=== PATIENT | male | born 1945 | race Two or more races ===

== ENCOUNTER 2018-09-12 17:40 | Inpatient (IN) | payer OTHER ==
[~2018-09-12] VITALS: Ht 170.2 cm; Wt 60.8 kg
[2018-09-12] MEDS ORDERED: BLOO-668 IN (18:25)
[2018-09-12] MEDS ORDERED: ACET650S26 GT (18:25)
[2018-09-12] MEDS ORDERED: BISA10SU8 RC (18:25)
[2018-09-12] MEDS ORDERED: DILT60TA19 GT (18:25)
[2018-09-12] MEDS ORDERED: NA P133E RC (18:25)
[2018-09-12] MEDS ORDERED: AMIN30LI2 GT (18:25)
[2018-09-12] MEDS ORDERED: DOCU50LI GT (18:25)
[2018-09-12] MEDS ORDERED: LEVE100S GT (18:25)
[2018-09-12] MEDS ORDERED: BENA20TA9 GT (18:25)
[2018-09-12] MEDS ORDERED: INSU100V11 SQ (18:25)
[2018-09-12] MEDS ORDERED: LORA10TA7 GT (18:25)
[2018-09-12] MEDS ORDERED: LORA0.5T GT (18:25)
[2018-09-12] MEDS ORDERED: NUT.237L30 GT (18:25)
[2018-09-12] MEDS ORDERED: MAGN400O6 GT (18:25)
[2018-09-12] MEDS ORDERED: CHOL100044 GT (18:25)
[2018-09-12] MEDS ORDERED: IPRA3AMP23 IH ×2 (18:25)
[2018-09-12] MEDS ORDERED: ACET-2605 GT (18:25)
[2018-09-12] MEDS ORDERED: MULT-447 GT (18:25)
[2018-09-12] MEDS ORDERED: VIT500LI GT (18:25)
[2018-09-12] MEDS ORDERED: ACETAMINOPHEN ES 500 MG TABLET GT ONE (18:30)
[2018-09-12] MEDS ORDERED: IV NS 0.9% 500 ML BAG IV ONE (18:30)
[2018-09-12] MEDS ORDERED: ACETAMINOPHEN ES 500 MG TABLET ONE (18:35)
[2018-09-12 18:56] LABS: ALANINE AMINOTRANSFERASE 72 U/L (12-78); ALBUMIN 2.3 g/dL (3.4-5.0); ALKALINE PHOSPHATASE 130 U/L (46-116); ASPARTATE AMINOTRANSFERASE 48 U/L (15-37); BASOPHILS % (AUTO) 0.3 % (0.0-2.0); BILIRUBIN,DIRECT 0.1 mg/dL (0.0-0.2); BILIRUBIN,TOTAL 0.3 mg/dL (0.2-1.0); CALCIUM, SERUM 8.9 mg/dL (8.5-10.1); CARBON DIOXIDE 30 mmol/L (21-32); CHLORIDE 104 mmol/L (98-107); CREATININE 1.1 mg/dL (0.6-1.3); EOSINOPHILS % (AUTO) 19.5 % (0.0-6.0); GLUCOSE 62 mg/dL (74-106); HEMATOCRIT 29 % (39-51); HEMOGLOBIN 9.2 g/dL (13.5-17.5); LYMPHOCYTES # (AUTO) 2.6 /CMM (0.8-4.8); LYMPHOCYTES % (AUTO) 25.3 % (20.0-44.0); MEAN CORPUSCULAR HGB CONC 32 g/dl (31.0-36.0); MEAN CORPUSCULAR VOLUME 88 fL (80-96); MONOCYTES # (AUTO) 0.7 /CMM (0.1-1.30); MONOCYTES % (AUTO) 6.6 % (2.0-12.0); NEUTROPHILS # (AUTO) 4.9 /CMM (1.8-8.9); NEUTROPHILS % (AUTO) 48.3 % (43.0-81.0); PLATELET COUNT (AUTO) 364 /CMM (150-450); POTASSIUM 4.6 mmol/L (3.5-5.1); RED BLOOD CELL COUNT(AUTO) 3.29 MIL/uL (4.5-6.0); SODIUM SERUM 138 mmol/L (136-145); TOTAL PROTEIN, SERUM 8.6 g/dL (6.4-8.2); UREA NITROGEN, BLOOD 26 mg/dL (7-18); WHITE BLOOD COUNT (AUTO) 10.1 K/uL (4.3-11.0)
[2018-09-12] MEDS ORDERED: Z GUARD REMEDY 2 OZ OINT TP PRN (22:00)
[2018-09-12] MEDS ORDERED: GLUCERNA 1.2 1,000 ML BOTTLE GT SCH (22:00)
[2018-09-12] MEDS ORDERED: MAGNESIUM HYDROXIDE 30 ML UDC PO PRN (22:00)
[2018-09-12] MEDS ORDERED: MAG HYDROX/AL HYDROX/SIMETH 30 ML UDC PO PRN (22:00)
[2018-09-12] MEDS ORDERED: ONDANSETRON HCL/PF 4 MG/2 ML VIAL IVP PRN (22:00)
[2018-09-12] MEDS ORDERED: NA PHOS,M-B/NA PHOS,DI-BA 1 EA ENEMA RC PRN (22:00)
[2018-09-12] MEDS ORDERED: BISACODYL SUPP (10 MG) 10 MG/SUPP.RECT SUPP.RECT RC PRN (22:00)
[2018-09-12] MEDS ORDERED: DEXTROSE 50%-WATER 50 ML DISP.SYRIN IV PRN (22:30)
[2018-09-12 22:47] VITALS: BP 154/100
[2018-09-12 22:50] VITALS: BP 154/100
[2018-09-12] MEDS ORDERED: ASPIRIN 300 MG/SUPP.RECT RC ONE (23:00)
[2018-09-12] MEDS ORDERED: VANCOMYCIN 1.5 GM in IV D5W 500ml IV ONE (23:00)
[2018-09-13] VITALS: BP_SYST 139; BP_SYST 142; BP_DIAS 72; BP_DIAS 75
[2018-09-13] MEDS ORDERED: CEFEPIME 2 GM in IV D5W 100 ML IV ONE ×2
[2018-09-13] MEDS: BLOOD SUGAR DIAGNOSTIC 1 EACH STRIP IN SCH ×4 (00:47→23:52)
[2018-09-13] MEDS ORDERED: VANCOMYCIN 1 GM VIAL ONE (00:50)
[2018-09-13] MEDS ORDERED: VANCOMYCIN 500 MG VIAL ONE (00:53)
[2018-09-13] MEDS ORDERED: ACETAMINOPHEN 650 MG/SUPP.RECT RC ONE (01:09)
[2018-09-13] MEDS ORDERED: CEFEPIME 1 GM VIAL ONE (01:13)
[2018-09-13 04:00] VITALS: BP 139/75
[2018-09-13 08:00] VITALS: BP 142/77
[2018-09-13 08:20] LABS: EOSINOPHILS % (AUTO) 16.2 % (0.0-6.0); HEMATOCRIT 27 % (39-51); HEMOGLOBIN 8.7 g/dL (13.5-17.5); LYMPHOCYTES % (AUTO) 12.5 % (20.0-44.0); MEAN CORPUSCULAR HGB CONC 32 g/dl (31.0-36.0); MEAN CORPUSCULAR VOLUME 87 fL (80-96); MONOCYTES # (AUTO) 0.4 /CMM (0.1-1.30); MONOCYTES % (AUTO) 5.3 % (2.0-12.0); NEUTROPHILS # (AUTO) 5.5 /CMM (1.8-8.9); PLATELET COUNT (AUTO) 356 /CMM (150-450); RED BLOOD CELL COUNT(AUTO) 3.09 MIL/uL (4.5-6.0); WHITE BLOOD COUNT (AUTO) 8.3 K/uL (4.3-11.0)
[2018-09-13 08:22] LABS: CALCIUM, SERUM 8.5 mg/dL (8.5-10.1); CARBON DIOXIDE 26 mmol/L (21-32); CHLORIDE 106 mmol/L (98-107); CREATININE 0.8 mg/dL (0.6-1.3); GLUCOSE 128 mg/dL (74-106); PHOSPHORUS 3.6 mg/dL (2.5-4.9); POTASSIUM 4.1 mmol/L (3.5-5.1); SODIUM SERUM 140 mmol/L (136-145); UREA NITROGEN, BLOOD 22 mg/dL (7-18)
[2018-09-13 08:29] LABS: CHOLESTEROL 97 mg/dL (<200); HDL CHOLESTEROL 34 mg/dL (40-60); LDL 68 mg/dL (0-99); THYROID STIMULATING HORMONE 1.802 uIU/mL (0.358-3.74); TRIGLYCERIDES 80 mg/dL (30-150)
[2018-09-13] MEDS ORDERED: FEE PK DOSING 1 MIN EA MC ONE (08:29)
[2018-09-13] MEDS: LEVETIRACETAM SOL (5 ML) 100 MG/ML UDC GT SCH ×2 (08:51→16:26)
[2018-09-13] MEDS: CHOLECALCIFEROL 1,000 UNIT TABLET (VIT D3) GT SCH (08:51)
[2018-09-13] MEDS: BENAZEPRIL HCL 10 MG TABLET GT SCH (08:51)
[2018-09-13] MEDS: PROSOURCE / PROSTAT (PYXIS) 30 ML UDC GT SCH (08:51)
[2018-09-13] MEDS: DILTIAZEM HCL 30 MG TABLET GT SCH ×2 (08:52→16:26)
[2018-09-13] MEDS: LORATADINE 10 MG TABLET GT SCH (08:52)
[2018-09-13] MEDS: ASCORBIC ACID 500 MG TABLET GT SCH (08:52)
[2018-09-13] MEDS: DOCUSATE SODIUM LIQ 100 MG/10 ML UDC GT SCH ×2 (08:52→16:26)
[2018-09-13] MEDS: MULTIVIT W/MINERALS 1 TAB TABLET GT SCH (08:52)
[2018-09-13] MEDS ORDERED: ASCORBIC ACID SYRUP 500 MG/5 ML UDC GT SCH (09:00)
[2018-09-13] MEDS ORDERED: IPRATROPIUM NEB FS 0.5 MG/2.5 ML AMPUL.NEB NEB PRN (09:00)
[2018-09-13] MEDS: INSULIN REGULAR, HUMAN 100 UNIT/ML 3 ML VIAL SQ PRN ×3 (12:23→23:58)
[2018-09-13] MEDS: VANCOMYCIN 0.75 GM in IV D5W 250 ML IV SCH ×2 (12:35→22:33)
[2018-09-13] MEDS ORDERED: ALBUTEROL FS 2.5 MG/3 ML VIAL.NEB NEB PRN (13:30)
[2018-09-13] MEDS: IPRATROPIUM NEB FS 0.5 MG/2.5 ML AMPUL.NEB NEB SCH ×2 (13:42→19:41)
[2018-09-13] MEDS: ALBUTEROL FS 2.5 MG/3 ML VIAL.NEB NEB SCH ×2 (13:42→19:41)
[2018-09-13] MEDS: CEFEPIME 2 GM in IV D5W 100 ML IV SCH (14:09)
[2018-09-13 16:00] VITALS: BP 135/62
[2018-09-13] MEDS: IV NS 0.9% 1,000 ML IV PRN (16:45)
[2018-09-13] MEDS: GLUCERNA 1.2 1,000 ML BOTTLE GT SCH (16:46)
[2018-09-13 20:00] VITALS: BP 136/84
[2018-09-13 21:28] VITALS: BP 136/84
[2018-09-14] VITALS: BP 148/96
[2018-09-14] MEDS: ALBUTEROL FS 2.5 MG/3 ML VIAL.NEB NEB SCH ×4 (01:07→19:05)
[2018-09-14] MEDS: IPRATROPIUM NEB FS 0.5 MG/2.5 ML AMPUL.NEB NEB SCH ×4 (01:07→19:05)
[2018-09-14] MEDS: CEFEPIME 2 GM in IV D5W 100 ML IV SCH ×2 (02:36→15:46)
[2018-09-14 04:00] VITALS: BP 138/79
[2018-09-14] MEDS: GLUCERNA 1.2 1,000 ML BOTTLE GT SCH (05:40)
[2018-09-14] MEDS: BLOOD SUGAR DIAGNOSTIC 1 EACH STRIP IN SCH ×3 (05:53→17:35)
[2018-09-14] MEDS: IV NS 0.9% 1,000 ML IV PRN ×2 (06:00→22:23)
[2018-09-14] MEDS: INSULIN REGULAR, HUMAN 100 UNIT/ML 3 ML VIAL SQ PRN ×3 (06:03→17:37)
[2018-09-14 07:13] LABS: BASOPHILS % (AUTO) 0.3 % (0.0-2.0); HEMATOCRIT 26 % (39-51); HEMOGLOBIN 8.6 g/dL (13.5-17.5); LYMPHOCYTES # (AUTO) 1.2 /CMM (0.8-4.8); LYMPHOCYTES % (AUTO) 15.6 % (20.0-44.0); MEAN CORPUSCULAR HGB CONC 33 g/dl (31.0-36.0); MEAN CORPUSCULAR VOLUME 87 fL (80-96); MONOCYTES # (AUTO) 0.5 /CMM (0.1-1.30); MONOCYTES % (AUTO) 5.9 % (2.0-12.0); NEUTROPHILS # (AUTO) 4.7 /CMM (1.8-8.9); NEUTROPHILS % (AUTO) 60.2 % (43.0-81.0); PLATELET COUNT (AUTO) 351 /CMM (150-450); WHITE BLOOD COUNT (AUTO) 7.8 K/uL (4.3-11.0)
[2018-09-14 07:43] LABS: CALCIUM, SERUM 8.6 mg/dL (8.5-10.1); CARBON DIOXIDE 24 mmol/L (21-32); CHLORIDE 105 mmol/L (98-107); GLUCOSE 191 mg/dL (74-106); PHOSPHORUS 3.6 mg/dL (2.5-4.9); POTASSIUM 4.3 mmol/L (3.5-5.1); SODIUM SERUM 138 mmol/L (136-145); UREA NITROGEN, BLOOD 24 mg/dL (7-18)
[2018-09-14 07:48] LABS: IRON, SERUM 29 ug/dl (50-175); TOTAL IRON BINDING CAPACITY 156 ug/dl (250-450)
[2018-09-14 08:00] VITALS: BP 135/70
[2018-09-14 08:35] LABS: FERRITIN 303 ng/mL (8-388)
[2018-09-14] MEDS: LEVETIRACETAM SOL (5 ML) 100 MG/ML UDC GT SCH ×2 (09:08→16:45)
[2018-09-14] MEDS: DOCUSATE SODIUM LIQ 100 MG/10 ML UDC GT SCH ×2 (09:08→16:45)
[2018-09-14] MEDS: DILTIAZEM HCL 30 MG TABLET GT SCH ×2 (09:09→16:44)
[2018-09-14] MEDS: LORATADINE 10 MG TABLET GT SCH (09:09)
[2018-09-14] MEDS: ASCORBIC ACID 500 MG TABLET GT SCH (09:09)
[2018-09-14] MEDS: CHOLECALCIFEROL 1,000 UNIT TABLET (VIT D3) GT SCH (09:09)
[2018-09-14] MEDS: MULTIVIT W/MINERALS 1 TAB TABLET GT SCH (09:09)
[2018-09-14] MEDS: BENAZEPRIL HCL 10 MG TABLET GT SCH (09:09)
[2018-09-14] MEDS: PROSOURCE / PROSTAT (PYXIS) 30 ML UDC GT SCH (09:10)
[2018-09-14] MEDS: VANCOMYCIN 0.75 GM in IV D5W 250 ML IV SCH ×2 (11:00→11:24)
[2018-09-14 16:00] VITALS: BP 140/70
[2018-09-14] MEDS: LACTOBACILLUS RHAMNOSUS GG 1 EACH CAP.SPRINK GT SCH (16:44)
[2018-09-14 20:13] VITALS: BP 133/68
[2018-09-15 00:17] VITALS: BP 144/74
[2018-09-15] MEDS: BLOOD SUGAR DIAGNOSTIC 1 EACH STRIP IN SCH ×5 (00:29→23:36)
[2018-09-15] MEDS: INSULIN REGULAR, HUMAN 100 UNIT/ML 3 ML VIAL SQ PRN ×5 (00:31→23:40)
[2018-09-15] MEDS: ALBUTEROL FS 2.5 MG/3 ML VIAL.NEB NEB SCH ×2 (00:49→07:44)
[2018-09-15] MEDS: IPRATROPIUM NEB FS 0.5 MG/2.5 ML AMPUL.NEB NEB SCH ×4 (00:49→20:29)
[2018-09-15] MEDS: CEFEPIME 2 GM in IV D5W 100 ML IV SCH ×2 (03:16→15:06)
[2018-09-15] MEDS: GLUCERNA 1.2 1,000 ML BOTTLE GT SCH ×2 (03:16→18:03)
[2018-09-15 04:50] VITALS: BP 133/81
[2018-09-15 07:43] LABS: BASOPHILS % (AUTO) 0.1 % (0.0-2.0); EOSINOPHILS % (AUTO) 16.6 % (0.0-6.0); HEMATOCRIT 26 % (39-51); HEMOGLOBIN 8.3 g/dL (13.5-17.5); LYMPHOCYTES # (AUTO) 1.8 /CMM (0.8-4.8); LYMPHOCYTES % (AUTO) 23.1 % (20.0-44.0); MEAN CORPUSCULAR HGB CONC 32 g/dl (31.0-36.0); MEAN CORPUSCULAR VOLUME 88 fL (80-96); MONOCYTES # (AUTO) 0.5 /CMM (0.1-1.30); MONOCYTES % (AUTO) 6.6 % (2.0-12.0); NEUTROPHILS # (AUTO) 4.1 /CMM (1.8-8.9); NEUTROPHILS % (AUTO) 53.6 % (43.0-81.0); PLATELET COUNT (AUTO) 327 /CMM (150-450); RED BLOOD CELL COUNT(AUTO) 2.95 MIL/uL (4.5-6.0); WHITE BLOOD COUNT (AUTO) 7.6 K/uL (4.3-11.0)
[2018-09-15 07:51] LABS: CALCIUM, SERUM 8.6 mg/dL (8.5-10.1); CARBON DIOXIDE 25 mmol/L (21-32); CHLORIDE 106 mmol/L (98-107); GLUCOSE 181 mg/dL (74-106); MAGNESIUM 1.8 mg/dL (1.8-2.4); PHOSPHORUS 3.8 mg/dL (2.5-4.9); POTASSIUM 4.6 mmol/L (3.5-5.1); SODIUM SERUM 139 mmol/L (136-145); UREA NITROGEN, BLOOD 22 mg/dL (7-18)
[2018-09-15] MEDS: LEVETIRACETAM SOL (5 ML) 100 MG/ML UDC GT SCH ×2 (09:34→16:40)
[2018-09-15] MEDS: DOCUSATE SODIUM LIQ 100 MG/10 ML UDC GT SCH ×2 (09:34→16:40)
[2018-09-15] MEDS: LACTOBACILLUS RHAMNOSUS GG 1 EACH CAP.SPRINK GT SCH ×2 (09:34→16:40)
[2018-09-15] MEDS: CHOLECALCIFEROL 1,000 UNIT TABLET (VIT D3) GT SCH (09:34)
[2018-09-15] MEDS: DILTIAZEM HCL 30 MG TABLET GT SCH ×2 (09:35→16:40)
[2018-09-15] MEDS: MULTIVIT W/MINERALS 1 TAB TABLET GT SCH (09:35)
[2018-09-15] MEDS: BENAZEPRIL HCL 10 MG TABLET GT SCH (09:35)
[2018-09-15] MEDS: ASCORBIC ACID 500 MG TABLET GT SCH (09:35)
[2018-09-15] MEDS: LORATADINE 10 MG TABLET GT SCH (10:16)
[2018-09-15] MEDS: PROSOURCE / PROSTAT (PYXIS) 30 ML UDC GT SCH (10:17)
[2018-09-15] MEDS ORDERED: VANCOMYCIN 1 GM in IV D5W 250 ML IV SCH (11:00)
[2018-09-15] MEDS: VANCOMYCIN 0.75 GM in IV D5W 250 ML IV SCH (11:31)
[2018-09-15] MEDS: ALBUTEROL HALF STRENGTH 1.25 MG/3 ML VIAL.NEB NEB SCH ×2 (13:21→20:29)
[2018-09-15 15:44] VITALS: BP 137/77
[2018-09-15 16:00] VITALS: BP 152/99
[2018-09-15 20:00] VITALS: BP 144/69
[2018-09-15] MEDS: IV NS 0.9% 1,000 ML IV PRN (20:03)
[2018-09-16] VITALS: BP 144/94
[2018-09-16] MEDS: IPRATROPIUM NEB FS 0.5 MG/2.5 ML AMPUL.NEB NEB SCH ×4 (02:12→20:15)
[2018-09-16] MEDS: ALBUTEROL HALF STRENGTH 1.25 MG/3 ML VIAL.NEB NEB SCH ×4 (02:12→20:14)
[2018-09-16] MEDS: CEFEPIME 2 GM in IV D5W 100 ML IV SCH ×2 (03:01→14:45)
[2018-09-16 04:00] VITALS: BP 137/84
[2018-09-16] MEDS: BLOOD SUGAR DIAGNOSTIC 1 EACH STRIP IN SCH ×4 (05:48→23:23)
[2018-09-16] MEDS: INSULIN REGULAR, HUMAN 100 UNIT/ML 3 ML VIAL SQ PRN ×3 (05:52→23:23)
[2018-09-16 07:36] LABS: BASOPHILS % (AUTO) 0.1 % (0.0-2.0); EOSINOPHILS % (AUTO) 17.7 % (0.0-6.0); HEMATOCRIT 26 % (39-51); HEMOGLOBIN 8.3 g/dL (13.5-17.5); LYMPHOCYTES # (AUTO) 1.5 /CMM (0.8-4.8); LYMPHOCYTES % (AUTO) 19.3 % (20.0-44.0); MEAN CORPUSCULAR HGB CONC 32 g/dl (31.0-36.0); MEAN CORPUSCULAR VOLUME 87 fL (80-96); MONOCYTES # (AUTO) 0.5 /CMM (0.1-1.30); MONOCYTES % (AUTO) 6.7 % (2.0-12.0); NEUTROPHILS # (AUTO) 4.3 /CMM (1.8-8.9); NEUTROPHILS % (AUTO) 56.2 % (43.0-81.0); PLATELET COUNT (AUTO) 328 /CMM (150-450); RED BLOOD CELL COUNT(AUTO) 2.96 MIL/uL (4.5-6.0); WHITE BLOOD COUNT (AUTO) 7.6 K/uL (4.3-11.0)
[2018-09-16 07:57] LABS: CALCIUM, SERUM 8.6 mg/dL (8.5-10.1); CARBON DIOXIDE 25 mmol/L (21-32); CHLORIDE 103 mmol/L (98-107); CREATININE 0.9 mg/dL (0.6-1.3); GLUCOSE 147 mg/dL (74-106); MAGNESIUM 1.9 mg/dL (1.8-2.4); PHOSPHORUS 3.3 mg/dL (2.5-4.9); POTASSIUM 4.1 mmol/L (3.5-5.1); SODIUM SERUM 136 mmol/L (136-145); UREA NITROGEN, BLOOD 17 mg/dL (7-18)
[2018-09-16 08:00] VITALS: BP 139/95
[2018-09-16] MEDS: LEVETIRACETAM SOL (5 ML) 100 MG/ML UDC GT SCH ×2 (08:20→16:37)
[2018-09-16] MEDS: CHOLECALCIFEROL 1,000 UNIT TABLET (VIT D3) GT SCH (08:20)
[2018-09-16] MEDS: LORATADINE 10 MG TABLET GT SCH (08:20)
[2018-09-16] MEDS: LACTOBACILLUS RHAMNOSUS GG 1 EACH CAP.SPRINK GT SCH ×2 (08:20→16:37)
[2018-09-16] MEDS: DOCUSATE SODIUM LIQ 100 MG/10 ML UDC GT SCH ×2 (08:20→16:37)
[2018-09-16] MEDS: ASCORBIC ACID 500 MG TABLET GT SCH (08:20)
[2018-09-16] MEDS: MULTIVIT W/MINERALS 1 TAB TABLET GT SCH (08:20)
[2018-09-16] MEDS: BENAZEPRIL HCL 10 MG TABLET GT SCH (08:20)
[2018-09-16] MEDS: DILTIAZEM HCL 30 MG TABLET GT SCH ×2 (08:21→16:38)
[2018-09-16] MEDS: PROSOURCE / PROSTAT (PYXIS) 30 ML UDC GT SCH (08:26)
[2018-09-16] MEDS: VANCOMYCIN 0.75 GM in IV D5W 250 ML IV SCH (10:23)
[2018-09-16] MEDS: IV NS 0.9% 1,000 ML IV PRN (11:30)
[2018-09-16 12:00] VITALS: BP 142/95
[2018-09-16] MEDS: CADEXOMER IODINE 40 GM TUBE TP SCH (14:00)
[2018-09-16 16:00] VITALS: BP 156/108
[2018-09-16] MEDS: GLUCERNA 1.2 1,000 ML BOTTLE GT SCH (17:40)
[2018-09-16 20:00] VITALS: BP 148/65
[2018-09-17] VITALS: BP 152/61
[2018-09-17] MEDS: IPRATROPIUM NEB FS 0.5 MG/2.5 ML AMPUL.NEB NEB SCH ×4 (02:07→20:12)
[2018-09-17] MEDS: ALBUTEROL HALF STRENGTH 1.25 MG/3 ML VIAL.NEB NEB SCH ×4 (02:07→20:12)
[2018-09-17] MEDS: CEFEPIME 2 GM in IV D5W 100 ML IV SCH ×2 (02:24→15:11)
[2018-09-17] MEDS: IV NS 0.9% 1,000 ML IV PRN ×2 (03:01→23:32)
[2018-09-17 04:00] VITALS: BP_SYST 133; BP_SYST 148; BP_DIAS 65; BP_DIAS 83
[2018-09-17] MEDS: BLOOD SUGAR DIAGNOSTIC 1 EACH STRIP IN SCH ×4 (05:29→23:55)
[2018-09-17] MEDS: INSULIN REGULAR, HUMAN 100 UNIT/ML 3 ML VIAL SQ PRN ×3 (05:33→18:21)
[2018-09-17 07:13] LABS: BASOPHILS % (AUTO) 0.1 % (0.0-2.0); HEMATOCRIT 26 % (39-51); HEMOGLOBIN 8.5 g/dL (13.5-17.5); LYMPHOCYTES # (AUTO) 1.4 /CMM (0.8-4.8); LYMPHOCYTES % (AUTO) 16.8 % (20.0-44.0); MEAN CORPUSCULAR HGB CONC 33 g/dl (31.0-36.0); MEAN CORPUSCULAR VOLUME 88 fL (80-96); MONOCYTES # (AUTO) 0.6 /CMM (0.1-1.30); MONOCYTES % (AUTO) 7.5 % (2.0-12.0); NEUTROPHILS # (AUTO) 4.7 /CMM (1.8-8.9); NEUTROPHILS % (AUTO) 57.6 % (43.0-81.0); PLATELET COUNT (AUTO) 327 /CMM (150-450); RED BLOOD CELL COUNT(AUTO) 2.97 MIL/uL (4.5-6.0); WHITE BLOOD COUNT (AUTO) 8.2 K/uL (4.3-11.0)
[2018-09-17 07:34] LABS: CALCIUM, SERUM 8.6 mg/dL (8.5-10.1); CARBON DIOXIDE 26 mmol/L (21-32); CHLORIDE 104 mmol/L (98-107); GLUCOSE 156 mg/dL (74-106); PHOSPHORUS 3.4 mg/dL (2.5-4.9); SODIUM SERUM 137 mmol/L (136-145); UREA NITROGEN, BLOOD 18 mg/dL (7-18)
[2018-09-17 08:00] VITALS: BP_SYST 170; BP_SYST 171; BP_DIAS 82; BP_DIAS 92
[2018-09-17] MEDS: BENAZEPRIL HCL 10 MG TABLET GT SCH (10:03)
[2018-09-17] MEDS: DOCUSATE SODIUM LIQ 100 MG/10 ML UDC GT SCH ×2 (10:03→17:22)
[2018-09-17] MEDS: ASCORBIC ACID 500 MG TABLET GT SCH (10:03)
[2018-09-17] MEDS: CHOLECALCIFEROL 1,000 UNIT TABLET (VIT D3) GT SCH (10:03)
[2018-09-17] MEDS: LEVETIRACETAM SOL (5 ML) 100 MG/ML UDC GT SCH ×2 (10:03→17:23)
[2018-09-17] MEDS: LACTOBACILLUS RHAMNOSUS GG 1 EACH CAP.SPRINK GT SCH ×2 (10:04→17:23)
[2018-09-17] MEDS: DILTIAZEM HCL 30 MG TABLET GT SCH ×2 (10:04→17:23)
[2018-09-17] MEDS: LORATADINE 10 MG TABLET GT SCH (10:04)
[2018-09-17] MEDS: PROSOURCE / PROSTAT (PYXIS) 30 ML UDC GT SCH (10:04)
[2018-09-17] MEDS: MULTIVIT W/MINERALS 1 TAB TABLET GT SCH (10:05)
[2018-09-17] MEDS: CADEXOMER IODINE 40 GM TUBE TP SCH (10:06)
[2018-09-17] MEDS: VANCOMYCIN 0.75 GM in IV D5W 250 ML IV SCH (10:17)
[2018-09-17 12:00] VITALS: BP 170/92
[2018-09-17] MEDS: GLUCERNA 1.2 1,000 ML BOTTLE GT SCH (15:11)
[2018-09-17 16:00] VITALS: BP 155/71
[2018-09-17 20:00] VITALS: BP 142/94
[2018-09-18] VITALS: BP 139/67
[2018-09-18] MEDS: IPRATROPIUM NEB FS 0.5 MG/2.5 ML AMPUL.NEB NEB SCH ×4 (01:05→20:08)
[2018-09-18] MEDS: ALBUTEROL HALF STRENGTH 1.25 MG/3 ML VIAL.NEB NEB SCH ×4 (01:05→20:08)
[2018-09-18] MEDS: CEFEPIME 2 GM in IV D5W 100 ML IV SCH ×2 (03:20→15:21)
[2018-09-18 04:00] VITALS: BP 136/66
[2018-09-18] MEDS: BLOOD SUGAR DIAGNOSTIC 1 EACH STRIP IN SCH ×3 (05:51→19:20)
[2018-09-18] MEDS: GLUCERNA 1.2 1,000 ML BOTTLE GT SCH ×2 (05:58→22:17)
[2018-09-18] MEDS: INSULIN REGULAR, HUMAN 100 UNIT/ML 3 ML VIAL SQ PRN ×3 (06:05→19:14)
[2018-09-18 08:00] VITALS: BP_SYST 144; BP_SYST 154; BP_DIAS 73; BP_DIAS 82
[2018-09-18 08:18] LABS: EOSINOPHILS % (AUTO) 15.2 % (0.0-6.0); HEMATOCRIT 25 % (39-51); HEMOGLOBIN 8.3 g/dL (13.5-17.5); LYMPHOCYTES # (AUTO) 1.3 /CMM (0.8-4.8); LYMPHOCYTES % (AUTO) 14.4 % (20.0-44.0); MEAN CORPUSCULAR HGB CONC 33 g/dl (31.0-36.0); MEAN CORPUSCULAR VOLUME 88 fL (80-96); MONOCYTES # (AUTO) 0.8 /CMM (0.1-1.30); MONOCYTES % (AUTO) 8.6 % (2.0-12.0); NEUTROPHILS # (AUTO) 5.7 /CMM (1.8-8.9); NEUTROPHILS % (AUTO) 61.8 % (43.0-81.0); PLATELET COUNT (AUTO) 296 /CMM (150-450); WHITE BLOOD COUNT (AUTO) 9.2 K/uL (4.3-11.0)
[2018-09-18 08:27] LABS: CALCIUM, SERUM 8.3 mg/dL (8.5-10.1); CARBON DIOXIDE 27 mmol/L (21-32); CHLORIDE 102 mmol/L (98-107); GLUCOSE 156 mg/dL (74-106); MAGNESIUM 1.9 mg/dL (1.8-2.4); PHOSPHORUS 3.2 mg/dL (2.5-4.9); SODIUM SERUM 134 mmol/L (136-145); UREA NITROGEN, BLOOD 17 mg/dL (7-18)
[2018-09-18] MEDS: LEVETIRACETAM SOL (5 ML) 100 MG/ML UDC GT SCH ×2 (09:59→16:47)
[2018-09-18] MEDS: CHOLECALCIFEROL 1,000 UNIT TABLET (VIT D3) GT SCH (09:59)
[2018-09-18] MEDS: MULTIVIT W/MINERALS 1 TAB TABLET GT SCH (10:00)
[2018-09-18] MEDS: ASCORBIC ACID 500 MG TABLET GT SCH (10:00)
[2018-09-18] MEDS: BENAZEPRIL HCL 10 MG TABLET GT SCH (10:01)
[2018-09-18] MEDS: DOCUSATE SODIUM LIQ 100 MG/10 ML UDC GT SCH ×2 (10:02→16:47)
[2018-09-18] MEDS: LORATADINE 10 MG TABLET GT SCH (10:02)
[2018-09-18] MEDS: DILTIAZEM HCL 30 MG TABLET GT SCH ×2 (10:05→16:47)
[2018-09-18] MEDS: LACTOBACILLUS RHAMNOSUS GG 1 EACH CAP.SPRINK GT SCH ×2 (10:05→16:48)
[2018-09-18] MEDS: PROSOURCE / PROSTAT (PYXIS) 30 ML UDC GT SCH (10:07)
[2018-09-18] MEDS: CADEXOMER IODINE 40 GM TUBE TP SCH (11:18)
[2018-09-18] MEDS: VANCOMYCIN 0.75 GM in IV D5W 250 ML IV SCH (11:25)
[2018-09-18 12:00] VITALS: BP 144/82
[2018-09-18] MEDS: IV NS 0.9% 1,000 ML IV PRN (15:21)
[2018-09-18 16:00] VITALS: BP 139/87
[2018-09-18 20:00] VITALS: BP 147/68
[2018-09-19] VITALS: BP_SYST 138; BP_SYST 172; BP_DIAS 73; BP_DIAS 84
[2018-09-19] MEDS: BLOOD SUGAR DIAGNOSTIC 1 EACH STRIP IN SCH ×5 (00:19→23:03)
[2018-09-19 00:24] VITALS: BP 161/80
[2018-09-19] MEDS: LORAZEPAM 0.5 MG TABLET GT PRN (00:28)
[2018-09-19] MEDS: IPRATROPIUM NEB FS 0.5 MG/2.5 ML AMPUL.NEB NEB SCH ×4 (01:19→19:28)
[2018-09-19] MEDS: ALBUTEROL HALF STRENGTH 1.25 MG/3 ML VIAL.NEB NEB SCH ×4 (01:19→19:28)
[2018-09-19] MEDS: CEFEPIME 2 GM in IV D5W 100 ML IV SCH ×2 (02:06→15:57)
[2018-09-19 04:00] VITALS: BP_SYST 145; BP_SYST 154; BP_DIAS 78; BP_DIAS 89
[2018-09-19] MEDS: INSULIN REGULAR, HUMAN 100 UNIT/ML 3 ML VIAL SQ PRN ×4 (06:03→23:13)
[2018-09-19] MEDS: IV NS 0.9% 1,000 ML IV PRN ×2 (06:04→21:01)
[2018-09-19 08:00] VITALS: BP 127/69
[2018-09-19 08:14] LABS: HEMATOCRIT 26 % (39-51); HEMOGLOBIN 8.4 g/dL (13.5-17.5); LYMPHOCYTES # (AUTO) 1.4 /CMM (0.8-4.8); LYMPHOCYTES % (AUTO) 13.2 % (20.0-44.0); MEAN CORPUSCULAR HGB CONC 32 g/dl (31.0-36.0); MEAN CORPUSCULAR VOLUME 90 fL (80-96); MONOCYTES % (AUTO) 9.9 % (2.0-12.0); NEUTROPHILS # (AUTO) 6.4 /CMM (1.8-8.9); NEUTROPHILS % (AUTO) 61.9 % (43.0-81.0); PLATELET COUNT (AUTO) 300 /CMM (150-450); RED BLOOD CELL COUNT(AUTO) 2.93 MIL/uL (4.5-6.0); WHITE BLOOD COUNT (AUTO) 10.4 K/uL (4.3-11.0)
[2018-09-19] MEDS: CHOLECALCIFEROL 1,000 UNIT TABLET (VIT D3) GT SCH (09:11)
[2018-09-19] MEDS: LEVETIRACETAM SOL (5 ML) 100 MG/ML UDC GT SCH ×2 (09:11→18:22)
[2018-09-19] MEDS: DOCUSATE SODIUM LIQ 100 MG/10 ML UDC GT SCH ×2 (09:11→18:23)
[2018-09-19] MEDS: ASCORBIC ACID 500 MG TABLET GT SCH (09:12)
[2018-09-19] MEDS: DILTIAZEM HCL 30 MG TABLET GT SCH ×2 (09:12→18:22)
[2018-09-19] MEDS: BENAZEPRIL HCL 10 MG TABLET GT SCH (09:12)
[2018-09-19] MEDS: MULTIVIT W/MINERALS 1 TAB TABLET GT SCH (09:12)
[2018-09-19] MEDS: LACTOBACILLUS RHAMNOSUS GG 1 EACH CAP.SPRINK GT SCH ×2 (09:12→18:22)
[2018-09-19] MEDS: LORATADINE 10 MG TABLET GT SCH (09:12)
[2018-09-19] MEDS: PROSOURCE / PROSTAT (PYXIS) 30 ML UDC GT SCH (09:32)
[2018-09-19] MEDS: CADEXOMER IODINE 40 GM TUBE TP SCH (09:59)
[2018-09-19 10:30] LABS: CARBON DIOXIDE 23 mmol/L (21-32); CHLORIDE 102 mmol/L (98-107); GLUCOSE 145 mg/dL (74-106); MAGNESIUM 1.9 mg/dL (1.8-2.4); PHOSPHORUS 3.4 mg/dL (2.5-4.9); POTASSIUM 4.4 mmol/L (3.5-5.1); SODIUM SERUM 134 mmol/L (136-145); UREA NITROGEN, BLOOD 19 mg/dL (7-18)
[2018-09-19 10:55] LABS: CALCIUM, SERUM 8.9 mg/dL (8.5-10.1)
[2018-09-19] MEDS: VANCOMYCIN 0.75 GM in IV D5W 250 ML IV SCH (11:06)
[2018-09-19 16:00] VITALS: BP 156/75
[2018-09-19] MEDS: GLUCERNA 1.2 1,000 ML BOTTLE GT SCH (16:02)
[2018-09-19 20:00] VITALS: BP 148/75
[2018-09-19] MEDS: ACETAMINOPHEN 325 MG TABLET PO PRN (20:02)
[2018-09-20] VITALS: BP 138/89
[2018-09-20] MEDS: ALBUTEROL HALF STRENGTH 1.25 MG/3 ML VIAL.NEB NEB SCH ×4 (00:49→19:46)
[2018-09-20] MEDS: IPRATROPIUM NEB FS 0.5 MG/2.5 ML AMPUL.NEB NEB SCH ×4 (00:49→19:46)
[2018-09-20] MEDS: CEFEPIME 2 GM in IV D5W 100 ML IV SCH ×2 (02:00→15:54)
[2018-09-20 04:00] VITALS: BP 152/78
[2018-09-20] MEDS: GLUCERNA 1.2 1,000 ML BOTTLE GT SCH (04:55)
[2018-09-20] MEDS: BLOOD SUGAR DIAGNOSTIC 1 EACH STRIP IN SCH ×3 (05:04→18:13)
[2018-09-20] MEDS: INSULIN REGULAR, HUMAN 100 UNIT/ML 3 ML VIAL SQ PRN ×2 (05:16→11:58)
[2018-09-20 08:00] VITALS: BP 119/77
[2018-09-20 08:00] LABS: BASOPHILS % (AUTO) 0.1 % (0.0-2.0); EOSINOPHILS % (AUTO) 15.5 % (0.0-6.0); HEMATOCRIT 24 % (39-51); HEMOGLOBIN 7.9 g/dL (13.5-17.5); LYMPHOCYTES # (AUTO) 1.1 /CMM (0.8-4.8); MEAN CORPUSCULAR HGB CONC 32 g/dl (31.0-36.0); MEAN CORPUSCULAR VOLUME 89 fL (80-96); MONOCYTES # (AUTO) 0.9 /CMM (0.1-1.30); MONOCYTES % (AUTO) 9.8 % (2.0-12.0); NEUTROPHILS # (AUTO) 5.8 /CMM (1.8-8.9); NEUTROPHILS % (AUTO) 62.6 % (43.0-81.0); PLATELET COUNT (AUTO) 267 /CMM (150-450); RED BLOOD CELL COUNT(AUTO) 2.75 MIL/uL (4.5-6.0); WHITE BLOOD COUNT (AUTO) 9.2 K/uL (4.3-11.0)
[2018-09-20 08:37] LABS: CALCIUM, SERUM 8.5 mg/dL (8.5-10.1); CARBON DIOXIDE 25 mmol/L (21-32); CHLORIDE 103 mmol/L (98-107); CREATININE 1.1 mg/dL (0.6-1.3); GLUCOSE 133 mg/dL (74-106); MAGNESIUM 1.9 mg/dL (1.8-2.4); PHOSPHORUS 3.2 mg/dL (2.5-4.9); POTASSIUM 4.4 mmol/L (3.5-5.1); SODIUM SERUM 135 mmol/L (136-145); UREA NITROGEN, BLOOD 22 mg/dL (7-18)
[2018-09-20] MEDS: MULTIVIT W/MINERALS 1 TAB TABLET GT SCH (09:27)
[2018-09-20] MEDS: CHOLECALCIFEROL 1,000 UNIT TABLET (VIT D3) GT SCH (09:27)
[2018-09-20] MEDS: PROSOURCE / PROSTAT (PYXIS) 30 ML UDC GT SCH (09:27)
[2018-09-20] MEDS: DOCUSATE SODIUM LIQ 100 MG/10 ML UDC GT SCH ×2 (09:27→17:13)
[2018-09-20] MEDS: LEVETIRACETAM SOL (5 ML) 100 MG/ML UDC GT SCH ×2 (09:27→17:14)
[2018-09-20] MEDS: LACTOBACILLUS RHAMNOSUS GG 1 EACH CAP.SPRINK GT SCH ×2 (09:29→17:14)
[2018-09-20] MEDS: ASCORBIC ACID 500 MG TABLET GT SCH (09:30)
[2018-09-20] MEDS: LORATADINE 10 MG TABLET GT SCH (09:35)
[2018-09-20] MEDS: DILTIAZEM HCL 30 MG TABLET GT SCH ×2 (09:40→17:16)
[2018-09-20] MEDS: BENAZEPRIL HCL 10 MG TABLET GT SCH (09:41)
[2018-09-20] MEDS: ACETAMINOPHEN 325 MG TABLET PO PRN (09:53)
[2018-09-20] MEDS: VANCOMYCIN 0.75 GM in IV D5W 250 ML IV SCH (11:17)
[2018-09-20] MEDS: IV NS 0.9% 1,000 ML IV PRN (11:42)
[2018-09-20] MEDS: CADEXOMER IODINE 40 GM TUBE TP SCH (11:46)
[2018-09-20 12:00] VITALS: BP 124/70
[2018-09-20 16:00] VITALS: BP 126/61
[2018-09-20] MEDS ORDERED: CEFE2PIG2 IV (17:10)
[2018-09-20] MEDS ORDERED: VANC750P7 IV (17:10)
[2018-09-20 20:00] VITALS: BP 123/61
[2018-09-20] MEDS: LORAZEPAM 0.5 MG TABLET GT PRN (23:59)
[2018-09-21] VITALS: BP 156/60
[2018-09-21] MEDS: ACETAMINOPHEN 325 MG TABLET PO PRN (00:38)
[2018-09-21] MEDS: BLOOD SUGAR DIAGNOSTIC 1 EACH STRIP IN SCH ×3 (00:38→12:33)
[2018-09-21] MEDS: GLUCERNA 1.2 1,000 ML BOTTLE GT SCH (00:40)
[2018-09-21] MEDS: ALBUTEROL HALF STRENGTH 1.25 MG/3 ML VIAL.NEB NEB SCH ×3 (01:43→13:34)
[2018-09-21] MEDS: IPRATROPIUM NEB FS 0.5 MG/2.5 ML AMPUL.NEB NEB SCH ×3 (01:44→13:34)
[2018-09-21] MEDS: CEFEPIME 2 GM in IV D5W 100 ML IV SCH ×2 (03:42→15:07)
[2018-09-21] MEDS: IV NS 0.9% 1,000 ML IV PRN (03:43)
[2018-09-21 04:00] VITALS: BP 141/69
[2018-09-21] MEDS: INSULIN REGULAR, HUMAN 100 UNIT/ML 3 ML VIAL SQ PRN ×2 (06:04→12:06)
[2018-09-21 07:24] LABS: CALCIUM, SERUM 8.9 mg/dL (8.5-10.1); CARBON DIOXIDE 26 mmol/L (21-32); CHLORIDE 105 mmol/L (98-107); GLUCOSE 147 mg/dL (74-106); POTASSIUM 4.5 mmol/L (3.5-5.1); SODIUM SERUM 138 mmol/L (136-145); UREA NITROGEN, BLOOD 22 mg/dL (7-18)
[2018-09-21 08:00] VITALS: BP 154/86
[2018-09-21] MEDS: LEVETIRACETAM SOL (5 ML) 100 MG/ML UDC GT SCH ×2 (08:01→16:23)
[2018-09-21] MEDS: PROSOURCE / PROSTAT (PYXIS) 30 ML UDC GT SCH (08:01)
[2018-09-21] MEDS: DOCUSATE SODIUM LIQ 100 MG/10 ML UDC GT SCH ×2 (08:01→16:23)
[2018-09-21] MEDS: CHOLECALCIFEROL 1,000 UNIT TABLET (VIT D3) GT SCH (08:02)
[2018-09-21] MEDS: LORATADINE 10 MG TABLET GT SCH (08:02)
[2018-09-21] MEDS: DILTIAZEM HCL 30 MG TABLET GT SCH ×2 (08:03→16:23)
[2018-09-21] MEDS: MULTIVIT W/MINERALS 1 TAB TABLET GT SCH (08:03)
[2018-09-21] MEDS: ASCORBIC ACID 500 MG TABLET GT SCH (08:03)
[2018-09-21] MEDS: BENAZEPRIL HCL 10 MG TABLET GT SCH (08:03)
[2018-09-21] MEDS: LACTOBACILLUS RHAMNOSUS GG 1 EACH CAP.SPRINK GT SCH ×2 (08:03→16:23)
[2018-09-21] MEDS: CADEXOMER IODINE 40 GM TUBE TP SCH (08:29)
[2018-09-21] MEDS ORDERED: MUPIROCIN OINT 2% 22 GM TUBE TP SCH (10:30)
[2018-09-21] MEDS: VANCOMYCIN 0.75 GM in IV D5W 250 ML IV SCH (10:35)
[2018-09-21 12:00] VITALS: BP 150/90
[2018-09-21 16:00] VITALS: BP 167/67
[2018-09-21 16:23] VITALS: BP 167/67
== END 2018-09-21 17:00 | DRG 166 ==
LOC: ER 17:44 → TELE 21:30
PROVIDERS: ADMIT Nurse Practitioner Acute Care; ATTEND Hospitalist
PROC: 5A1955Z Respiratory Ventilation, Greater than 96 Consecutive Hours (ICD-10-PCS; principal; 2018-09-12)
PROC: 0JBQ0ZZ Excision of Right Foot Subcutaneous Tissue and Fascia, Open Approach (ICD-10-PCS; 2018-09-18)
PROC: 0KBW0ZZ Excision of Left Foot Muscle, Open Approach (ICD-10-PCS; 2018-09-18)
PROC: 02HV33Z Insertion of Infusion Device into Superior Vena Cava, Percutaneous Approach (ICD-10-PCS; 2018-09-20)
PROC: B548ZZA Ultrasonography of Superior Vena Cava, Guidance (ICD-10-PCS; 2018-09-20)
DX: J69.0 Pneumonitis due to inhalation of food and vomit (principal); L89.893 Pressure ulcer of other site, stage 3; I21.A1 Myocardial infarction type 2; E43 Unspecified severe protein-calorie malnutrition; N17.0 Acute kidney failure with tubular necrosis; L03.116 Cellulitis of left lower limb; J96.10 Chronic respiratory failure, unspecified whether with hypoxia or hypercapnia; L03.115 Cellulitis of right lower limb; D68.59 Other primary thrombophilia; J96.11 Chronic respiratory failure with hypoxia; L97.429 Non-pressure chronic ulcer of left heel and midfoot with unspecified severity; Z99.11 Dependence on respirator [ventilator] status; J98.11 Atelectasis; L97.919 Non-pressure chronic ulcer of unspecified part of right lower leg with unspecified severity; L97.109 Non-pressure chronic ulcer of unspecified thigh with unspecified severity; E87.1 Hypo-osmolality and hyponatremia; G93.40 Encephalopathy, unspecified; E11.51 Type 2 diabetes mellitus with diabetic peripheral angiopathy without gangrene; E11.621 Type 2 diabetes mellitus with foot ulcer; L97.529 Non-pressure chronic ulcer of other part of left foot with unspecified severity; Z93.1 Gastrostomy status; Z93.0 Tracheostomy status; R13.10 Dysphagia, unspecified; G40.909 Epilepsy, unspecified, not intractable, without status epilepticus; I11.0 Hypertensive heart disease with heart failure; I48.91 Unspecified atrial fibrillation; J44.9 Chronic obstructive pulmonary disease, unspecified; Z88.0 Allergy status to penicillin; Z91.013 Allergy to seafood; Z79.4 Long term (current) use of insulin; Z79.899 Other long term (current) drug therapy; Z79.51 Long term (current) use of inhaled steroids; Z86.73 Personal history of transient ischemic attack (TIA), and cerebral infarction without residual deficits; D63.8 Anemia in other chronic diseases classified elsewhere; L60.1 Onycholysis; M21.372 Foot drop, left foot; M21.371 Foot drop, right foot; M20.10 Hallux valgus (acquired), unspecified foot; I50.9 Heart failure, unspecified; I70.202 Unspecified atherosclerosis of native arteries of extremities, left leg; T36.8X5A Adverse effect of other systemic antibiotics, initial encounter; Y92.10 Unspecified residential institution as the place of occurrence of the external cause; Z51.5 Encounter for palliative care
CPT/HCPCS: 31720; 36415; 36569; 71045-TC; 73630-TC; 76705-TC; 80048-TC; 80061-TC; 80076-TC; 80202-TC; 82728-TC; 82962-TC; 83540-TC; 83605-TC; 83735-TC; 84100-TC; 84443-TC; 84484-TC; 85025-TC; 85730-TC; 87040-TC; 87070-TC; 87075-TC; 87081-TC; 87186-TC; 93307-TC; 94003-TC; 94760-TC; 94762-TC; 94799-TC; A4217; A6253; A6402; A6403; G0378; J0692; J1815; J1953; J3370; J7030; J7040; J7042; J7060

== ENCOUNTER 2018-09-26 15:46 | Emergency (ER) | payer OTHER ==
[~2018-09-26] VITALS: Ht 165.1 cm; Wt 73.5 kg
[~2018-09-26 15:46] MED LIST: ACET-2605 GT; ACET650S26 GT; AMIN30LI2 GT; BENA20TA9 GT; BISA10SU8 RC; BLOO-668 IN; CEFE2PIG2 IV; CHOL100044 GT; DILT60TA19 GT; DOCU50LI GT; INSU100V11 SQ; IPRA3AMP23 IH; LEVE100S GT; LORA0.5T GT; LORA10TA7 GT; MAGN400O6 GT; MULT-447 GT; NA P133E RC; NUT.237L30 GT; VANC750P7 IV; VIT500LI GT
[2018-09-26 15:53] VITALS: BP 152/72
--- NOTE | 2018-09-26 16:20 | NUR ---
RT RECEIVED TRACH PATIENT IN THE ER FOR PICC LINE INSERTION .PLACED PATIENT ON VENT WITH NOTED VENT SETTINGS PER MD ORDER. WILL CONTINUE TO MONITOR PATIENT. Addendum: 09/26/18 at 1625 by DARYL KAUFFMAN RT Amended: Links added.
--- NOTE | 2018-09-26 16:46 | NUR ---
RAMIREZ RT TRANSPORT TO [facility] ETA 1800 TRIP#[id number]
--- NOTE | 2018-09-26 16:48 | NUR ---
PICC LINE INSERTED BY BOONE FERMIN, ON RIGHT BRACHIAL 36CM IN, 30 ARM CIRCUMFERENCE.
--- NOTE | 2018-09-26 18:34 | NUR ---
REPORT GIVEN TO OSVALDO PIMENTEL RN, BP 167/101 HR 90. DISCHARGE INSTRUCTIONS PROVIDED AND VERBALIZED UNDERSTANDING. NO DISTRESS NOTED, VENT DEPENDENT. YELITZA PICC LINE IN PLACED. LEFT IN STABLE CONDITION.
== END 2018-09-26 18:36 ==
LOC: ER 15:47
DX: T82.898A Other specified complication of vascular prosthetic devices, implants and grafts, initial encounter (principal); I10 Essential (primary) hypertension; I48.91 Unspecified atrial fibrillation; J44.9 Chronic obstructive pulmonary disease, unspecified; E11.9 Type 2 diabetes mellitus without complications; I73.9 Peripheral vascular disease, unspecified; Z86.73 Personal history of transient ischemic attack (TIA), and cerebral infarction without residual deficits; Z88.0 Allergy status to penicillin; Z91.013 Allergy to seafood; Z79.4 Long term (current) use of insulin; Z79.899 Other long term (current) drug therapy
CPT/HCPCS: 36569; 71045-TC

== ENCOUNTER 2018-10-27 17:47 | Inpatient (IN) | payer OTHER ==
[~2018-10-27] VITALS: Ht 177.8 cm; Wt 66.7 kg
--- NOTE | 2018-10-27 18:06 | NUR ---
BLEEDING TRACH SITE- AND BLACK TARRY STOOL X 7 DAYS. ACCU CHECK =252 MM/DL. FROM [facility]. PT NON-VERBAL. ON VENTILATOR, AND HAS G-TUBE IN PLACE. BILATERAL HEEL PROTECTORS, BLE SKIN PATCHY AND DRY. READY FOR EVAL.
--- NOTE | 2018-10-27 18:22 | NUR ---
CALLED NURSING SUP. FOR TELE BED
[2018-10-27 18:35] VITALS: BP 150/98
[2018-10-27 19:00] LABS: HEMOGLOBIN 7.9 g/dL (13.5-17.5); LYMPHOCYTES # (AUTO) 1.3 /CMM (0.8-4.8); MEAN CORPUSCULAR HGB CONC 33 g/dl (31.0-36.0); NEUTROPHILS # (AUTO) 3.3 /CMM (1.8-8.9); WHITE BLOOD COUNT (AUTO) 8.4 K/uL (4.3-11.0)
[2018-10-27 19:04] LABS: BASOPHILS % (AUTO) 0.4 % (0.0-2.0); HEMATOCRIT 24 % (39-51); LYMPHOCYTES % (AUTO) 15.9 % (20.0-44.0); MEAN CORPUSCULAR VOLUME 93 fL (80-96); MONOCYTES # (AUTO) 1.2 /CMM (0.1-1.30); MONOCYTES % (AUTO) 13.9 % (2.0-12.0); NEUTROPHILS % (AUTO) 39.5 % (43.0-81.0); PLATELET COUNT (AUTO) 181 /CMM (150-450); RED BLOOD CELL COUNT(AUTO) 2.57 MIL/uL (4.5-6.0)
[2018-10-27 19:05] LABS: EOSINOPHILS % (AUTO) 30.3 % (0.0-6.0)
--- NOTE | 2018-10-27 19:07 | NUR ---
[facility] PAGED, LINK CUTTER
[2018-10-27 19:15] VITALS: BP 146/82
[2018-10-27 19:15] LABS: ALANINE AMINOTRANSFERASE 23 U/L (12-78); ALBUMIN 1.8 g/dL (3.4-5.0); ALKALINE PHOSPHATASE 103 U/L (46-116); ASPARTATE AMINOTRANSFERASE 28 U/L (15-37); BILIRUBIN,TOTAL 0.4 mg/dL (0.2-1.0); CALCIUM, SERUM 11.3 mg/dL (8.5-10.1); CARBON DIOXIDE 17 mmol/L (21-32); CHLORIDE 110 mmol/L (98-107); GLUCOSE 182 mg/dL (74-106); POTASSIUM 5.4 mmol/L (3.5-5.1); SODIUM SERUM 145 mmol/L (136-145); TOTAL PROTEIN, SERUM 8.3 g/dL (6.4-8.2)
[2018-10-27 19:20] LABS: CREATININE 8.7 mg/dL (0.6-1.3); UREA NITROGEN, BLOOD 141 mg/dL (7-18)
--- NOTE | 2018-10-27 19:35 | NUR ---
TELE 103
--- NOTE | 2018-10-27 19:58 | NUR ---
pt received on vent via trach. airway patent secure via trach tie. settings as charted. pt unresponsive to pain. ambu bag at bedside alarms set and audible. disconnect alarms checked suctioned a small amount of thick bloody red secretions head of bed at 30 degrees pt receiving no breathing tx at this time Addendum: 10/27/18 at 1958 by MI SÁNCHEZ RT Amended: Links added.
--- NOTE | 2018-10-27 20:17 | NUR ---
PT RESTING IN BED. VSS. WILL CONT TO MONITOR
--- NOTE | 2018-10-27 20:45 | NUR ---
REPORT GIVEN TO JENY WELCH FOR 103-T
[2018-10-27 21:00] VITALS: BP 157/77
[2018-10-27 21:14] VITALS: BP 145/85
--- NOTE | 2018-10-27 21:15 | NUR ---
RN NOTE RECEIVED PATIENT FROM ER VIA GURNEY, ON MECHANICAL VENTILATOR, BREATHING IS NON LABORED, DX BLEEDING TRACHEOSTOMY, NON VERBAK, RESPONSE TO PAIN ONLY, UNABLE TO COMPREHEND, CECY MAHONEY IS BY BEDSIDE, NPO, RIGHT UPPER PICC LINE NOTED, NO S/S OF INFECTION NOTED, SKIN PICTURES TAKEN, BELONGING'S LIST FILLED OUT AND PLACED IN THE CHART, ALL SAFETY MEASURES TAKEN, WILL CONTINUE TO MONITOR PATIENT
[2018-10-27 21:17] LABS: LYMPHOCYTES % (MANUAL) 18 % (16-48); NEUTROPHILS % (MANUAL) 48 (42-76)
[2018-10-27 21:18] LABS: EOSINOPHILS % (MANUAL) 26 % (0-4); MONOCYTES % (MANUAL) 8 % (0-11.0)
--- NOTE | 2018-10-27 21:20 | NUR ---
[facility]
[2018-10-27 22:27] VITALS: BP 157/77
[2018-10-27] MEDS ORDERED: IV D5/0.45 NACL 1,000 ML IV PRN (22:54)
[2018-10-27] MEDS ORDERED: DEXTROSE 50%-WATER 50 ML DISP.SYRIN IV PRN (23:00)
[2018-10-27] MEDS ORDERED: Z GUARD REMEDY 2 OZ OINT TP PRN (23:00)
[2018-10-27] MEDS ORDERED: ACETAMINOPHEN 325 MG TABLET PO PRN (23:00)
[2018-10-27] MEDS ORDERED: ZOLPIDEM TARTRATE 5 MG TABLET PO PRN (23:00)
[2018-10-27] MEDS ORDERED: MAG HYDROX/AL HYDROX/SIMETH 30 ML UDC PO PRN (23:00)
[2018-10-27] MEDS ORDERED: MAGNESIUM HYDROXIDE 30 ML UDC PO PRN (23:00)
[2018-10-27] MEDS ORDERED: ONDANSETRON HCL/PF 4 MG/2 ML VIAL IVP PRN (23:00)
[2018-10-27] MEDS: BLOOD SUGAR DIAGNOSTIC 1 EACH STRIP IN SCH (23:42)
[2018-10-27] MEDS: INSULIN REGULAR, HUMAN 100 UNIT/ML 3 ML VIAL SQ PRN (23:52)
[2018-10-28] VITALS: BP 126/71
--- NOTE | 2018-10-28 02:18 | NUR ---
RN NOTE NOTIFIED VIDAL MAHONEY THAT HOME MEDICATIONS WERE ENTERED, AWAITING FOR MEDICATION RECON. TO BE DONE
[2018-10-28] MEDS ORDERED: MAGNESIUM HYDROXIDE 30 ML UDC GT PRN ×2 (03:30→08:17)
[2018-10-28] MEDS ORDERED: NA PHOS,M-B/NA PHOS,DI-BA 1 EA ENEMA RC PRN (03:30)
[2018-10-28] MEDS ORDERED: BISACODYL SUPP (10 MG) 10 MG/SUPP.RECT SUPP.RECT RC PRN (03:30)
[2018-10-28] MEDS ORDERED: Medication Not On Formulary EA (Ipratropium/Albuterol Sulfate (Duoneb 2.5-0.5 Mg/3 Ml So IH PRN (03:30)
[2018-10-28 04:00] VITALS: BP 137/57
[2018-10-28] MEDS ORDERED: BLOOD SUGAR DIAGNOSTIC 1 EACH STRIP IN SCH (05:00)
[2018-10-28] MEDS: BLOOD SUGAR DIAGNOSTIC 1 EACH STRIP IN SCH ×3 (05:11→17:24)
[2018-10-28] MEDS: INSULIN REGULAR, HUMAN 100 UNIT/ML 3 ML VIAL SQ PRN ×3 (05:14→17:23)
[2018-10-28 06:44] LABS: BASOPHILS % (AUTO) 0.3 % (0.0-2.0); HEMATOCRIT 24 % (39-51); HEMOGLOBIN 7.9 g/dL (13.5-17.5); LYMPHOCYTES # (AUTO) 1.3 /CMM (0.8-4.8); LYMPHOCYTES % (AUTO) 17.7 % (20.0-44.0); MEAN CORPUSCULAR HGB CONC 33 g/dl (31.0-36.0); MEAN CORPUSCULAR VOLUME 94 fL (80-96); MONOCYTES % (AUTO) 13.3 % (2.0-12.0); NEUTROPHILS # (AUTO) 2.5 /CMM (1.8-8.9); NEUTROPHILS % (AUTO) 33.2 % (43.0-81.0); PLATELET COUNT (AUTO) 164 /CMM (150-450); RED BLOOD CELL COUNT(AUTO) 2.52 MIL/uL (4.5-6.0); WHITE BLOOD COUNT (AUTO) 7.5 K/uL (4.3-11.0)
[2018-10-28 06:59] LABS: EOSINOPHILS % (AUTO) 35.5 % (0.0-6.0)
[2018-10-28 07:28] LABS: CALCIUM, SERUM 11.1 mg/dL (8.5-10.1); CARBON DIOXIDE 18 mmol/L (21-32); CHLORIDE 110 mmol/L (98-107); GLUCOSE 163 mg/dL (74-106); MAGNESIUM 3.3 mg/dL (1.8-2.4); POTASSIUM 5.6 mmol/L (3.5-5.1); SODIUM SERUM 146 mmol/L (136-145)
[2018-10-28] MEDS ORDERED: Medication Not On Formulary EA (Ipratropium/Albuterol Sulfate (Duoneb 2.5-0.5 Mg/3 Ml So IH SCH (07:35)
[2018-10-28 07:37] LABS: CREATININE 9.4 mg/dL (0.6-1.3); PHOSPHORUS 10.3 mg/dL (2.5-4.9); UREA NITROGEN, BLOOD 145 mg/dL (7-18)
--- NOTE | 2018-10-28 07:55 | NUR ---
AUTOMATION ENGINEER NOTE RECEIVED PATIENT IN BED WITH TRACH TO VENT SETTING ORDERED , RT AT BEDSIDE WITH TRACH SUCTION STILL WITH BLEEDING NOTED , ,ON TELE MONITOR AFIB HR 85 M BUN 145 CREAT 9.4 ,PHOS 10.[address] JAMES SAILOR NOTIFIED, RT UPPER ARM PICC LINE IN PLACE ,ON IVF ORDERED, ON NPO FOR NOW, AMBU BAG AT [facility] , WILL CONT TO MONITOR CLOSELY ,NOTED SKIN IS DIAPIRETIC, T 98.3
[2018-10-28 08:00] VITALS: BP 147/69
[2018-10-28] MEDS ORDERED: MAG HYDROX/AL HYDROX/SIMETH 30 ML UDC GT PRN (08:17)
[2018-10-28] MEDS ORDERED: IPRATROPIUM NEB FS 0.5 MG/2.5 ML AMPUL.NEB NEB PRN (08:30)
[2018-10-28] MEDS ORDERED: ALBUTEROL FS 2.5 MG/0.5 ML VIAL.NEB NEB PRN (08:30)
[2018-10-28 08:43] LABS: EOSINOPHILS % (MANUAL) 41 % (0-4); LYMPHOCYTES % (MANUAL) 17 % (16-48); MONOCYTES % (MANUAL) 11 % (0-11.0); NEUTROPHILS % (MANUAL) 31 (42-76)
[2018-10-28] MEDS ORDERED: PANTOPRAZOLE 40 MG VIAL IV SCH (09:00)
[2018-10-28] MEDS ORDERED: BENAZEPRIL HCL 20 MG TABLET GT SCH (09:00)
--- NOTE | 2018-10-28 09:13 | NUR ---
WOUND CARE CONSULT: PT FOLLOWED BY PLASTICS AND PODIATRY TEAM FOR WOUNDS. DR TODD NOTIFIED OF CONSULT REQUEST/ADMISSION. RECOMMENDATIONS MADE FOR SKIN PROTECTION. DISCUSSED WITH NURSING STAFF. PT ON CHAMA ISOFLEX LOW AIRLOSS BED. WILL SEE PRN.
[2018-10-28] MEDS: ASCORBIC ACID 500 MG TABLET GT SCH (09:41)
[2018-10-28] MEDS: CHOLECALCIFEROL 1,000 UNIT TABLET (VIT D3) GT SCH (09:41)
[2018-10-28] MEDS: DILTIAZEM HCL 30 MG TABLET GT SCH ×2 (09:42→16:33)
[2018-10-28] MEDS: MULTIVIT W/MINERALS 1 TAB TABLET GT SCH (09:42)
[2018-10-28] MEDS: LORATADINE 10 MG TABLET GT SCH (09:42)
[2018-10-28] MEDS: DOCUSATE SODIUM LIQ 100 MG/10 ML UDC GT SCH ×2 (09:42→16:33)
[2018-10-28] MEDS: LEVETIRACETAM SOL (5 ML) 100 MG/ML UDC GT SCH ×2 (09:42→16:33)
[2018-10-28] MEDS: PROSOURCE / PROSTAT (PYXIS) 30 ML UDC GT SCH (09:48)
--- NOTE | 2018-10-28 09:58 | NUR ---
SUPERVISOR BRINE NOTE SEEN BY DR GERARDO AWARE THAT PATIENT HAS TRACH BLEEDING WILL F\U
[2018-10-28] MEDS ORDERED: DESMOPRESSIN 20 MCG in IV NS 0.9% 50 ML IV ONE (10:30)
[2018-10-28 12:00] VITALS: BP 158/75
[2018-10-28 12:01] LABS: ABG BASE EXCESS -6.1 mmol/L; ABG PCO2 31.8 mmHg (35.0-45.0); ABG PH 7.379 (7.350-7.450); ABG PO2 137.4 mmHg (75.0-100.0); AaDO2 111.2 mmHg; COHb 0.4 % (0.5-1.5); MetHb 0.9 % (0.0-1.5); O2Hb 96.7 % (94.0-97.0); PEEP,BG 5 cm H2O; SITE, ABG Right Radial; VT, ABG 600 mL
--- NOTE | 2018-10-28 12:53 | NUR ---
ROBYN FERMIN NOTE SEEN BY CACHORRO FERMIN NP, NOTIFIED THAT STLL NPO BUT OK MEDS VIA GTUBE ,AWARE THAT TRACH SITE WITH BLEEDING AWARE THAT BUN 145 CREAT 9.4 , PHOS 10.3 K 5.6 Addendum: 10/28/18 at 1258 by KATHLEEN ESQUIVEL RN PER CACHORRO FERMIN NP OK TO CONT IVF AT SAME RATE 75 ML PER HOUR
[2018-10-28] MEDS: ALBUTEROL FS 2.5 MG/0.5 ML VIAL.NEB NEB SCH ×2 (13:07→19:50)
[2018-10-28] MEDS: IPRATROPIUM NEB FS 0.5 MG/2.5 ML AMPUL.NEB NEB SCH ×2 (13:07→19:50)
[2018-10-28] MEDS: IV D5/0.45 NACL 1,000 ML IV PRN (14:48)
--- NOTE | 2018-10-28 15:40 | NUR ---
SONOGRAPHY TECHNOLOGIST NOTE RT AT BEDSIDE TRACH SUCTION DONE WITH STILL LIGHT BLOODY SECRETION NOTED , ALL NEEDS ATTENDED ,KEEP CLEAN DRY , SEEN BY DR PARMAR FOOT DOCTOR ,STATED THAT WILL HAVE DEBRIDEMENT ON FOOT . WILL F\U WITH ORDER
[2018-10-28 16:00] VITALS: BP 133/78
--- NOTE | 2018-10-28 17:25 | NUR ---
TELE RNNNOTE CONSENT FRO DEBRIDEMENT OBTAINED , SIGNED
--- NOTE | 2018-10-28 18:23 | NUR ---
ROLL WEIGHER NOTE CONT ON TRACH TO VENT SETTING , ALL NEEDS ATTENDED, WILL CONT TO MONITOR CLOSELY
[2018-10-28 20:00] VITALS: BP 150/71
--- NOTE | 2018-10-28 20:09 | NUR ---
TAR CHASER OPENING NOTES RECEIVED REPORT FROM KATHLEEN FERMIN. PATIENT OBTUNDED, BUT RESPONDS TO TACTILE STIMULI. BREATHING EVEN & UNLABORED W/ TRACH INTACT & TOLERATING VENT SETTINGS AC 12, TV 600, FIO2 40%, PEEP 5. NO RESPIRATORY DISTRESS NOTED. SOME BLEEDING STILL NOTED IN TRACH SITE & SUCTION TUBING. ON TELE W/ CONTROLLED A-FIB W/ BBB, HR 87. RIGHT UPPER ARM PICC LINE INTACT & PATENT W/ DRESSING CDI & IVF D5 1/2 NS INFUSING WELL @ 75 ML/HR. G-TUBE PATENT & FLUSHING WELL, NO GTF @ THIS TIME. NO S/S OF PAIN OR DISCOMFORT @ THIS TIME. SAFETY MEASURES IN PLACE W/ SIDE RAILS UP & BED ALARM ON. TURNED & REPOSITIONED FOR COMFORT. WILL CONTINUE TO MONITOR.
[2018-10-28] MEDS: FAMOTIDINE/PF INJ 20 MG/2 ML VIAL IV SCH (21:12)
[2018-10-28] MEDS: HYDROGEL DRESSING 90 GM TUBE TP SCH (23:00)
[2018-10-29] VITALS: BP 141/69
[2018-10-29] MEDS: BLOOD SUGAR DIAGNOSTIC 1 EACH STRIP IN SCH ×4 (00:22→17:02)
[2018-10-29] MEDS: INSULIN REGULAR, HUMAN 100 UNIT/ML 3 ML VIAL SQ PRN ×3 (00:23→13:49)
[2018-10-29] MEDS: Z GUARD REMEDY 2 OZ OINT TP SCH ×3 (00:23→21:39)
[2018-10-29] MEDS: ALBUTEROL FS 2.5 MG/0.5 ML VIAL.NEB NEB SCH ×4 (01:30→20:43)
[2018-10-29] MEDS: IPRATROPIUM NEB FS 0.5 MG/2.5 ML AMPUL.NEB NEB SCH ×4 (01:30→20:43)
[2018-10-29 04:00] VITALS: BP 135/78
[2018-10-29] MEDS: IV D5/0.45 NACL 1,000 ML IV PRN ×2 (05:36→21:38)
[2018-10-29 06:58] LABS: BASOPHILS % (AUTO) 0.2 % (0.0-2.0); HEMATOCRIT 22 % (39-51); HEMOGLOBIN 7.2 g/dL (13.5-17.5); LYMPHOCYTES # (AUTO) 1.7 /CMM (0.8-4.8); LYMPHOCYTES % (AUTO) 20.6 % (20.0-44.0); MEAN CORPUSCULAR HGB CONC 33 g/dl (31.0-36.0); MEAN CORPUSCULAR VOLUME 94 fL (80-96); MONOCYTES # (AUTO) 1.1 /CMM (0.1-1.30); MONOCYTES % (AUTO) 13.4 % (2.0-12.0); NEUTROPHILS # (AUTO) 2.5 /CMM (1.8-8.9); NEUTROPHILS % (AUTO) 30.3 % (43.0-81.0); PLATELET COUNT (AUTO) 176 /CMM (150-450); RED BLOOD CELL COUNT(AUTO) 2.32 MIL/uL (4.5-6.0); WHITE BLOOD COUNT (AUTO) 8.1 K/uL (4.3-11.0)
[2018-10-29 07:04] LABS: EOSINOPHILS % (AUTO) 35.5 % (0.0-6.0)
[2018-10-29 07:07] LABS: ALANINE AMINOTRANSFERASE 20 U/L (12-78); ALBUMIN 1.7 g/dL (3.4-5.0); ALKALINE PHOSPHATASE 103 U/L (46-116); ASPARTATE AMINOTRANSFERASE 23 U/L (15-37); BILIRUBIN,TOTAL 0.4 mg/dL (0.2-1.0); CALCIUM, SERUM 11.2 mg/dL (8.5-10.1); CARBON DIOXIDE 16 mmol/L (21-32); CHLORIDE 111 mmol/L (98-107); GLUCOSE 112 mg/dL (74-106); MAGNESIUM 3.3 mg/dL (1.8-2.4); POTASSIUM 5.6 mmol/L (3.5-5.1); SODIUM SERUM 147 mmol/L (136-145); TOTAL PROTEIN, SERUM 7.7 g/dL (6.4-8.2)
[2018-10-29 07:11] LABS: CREATININE 10.3 mg/dL (0.6-1.3); PHOSPHORUS 10.1 mg/dL (2.5-4.9); UREA NITROGEN, BLOOD 147 mg/dL (7-18)
[2018-10-29 07:16] LABS: CREATINE KINASE, TOTAL 42 U/L (39-308)
--- NOTE | 2018-10-29 07:22 | NUR ---
RN OPENING NOTE PT WAS RECEIVED IN BED AT LOWEST AND LOCKED POSITION WITH SIDE RAILS UP X2, OBTUNDED AND NONVERBAL, ON VENT WITH VENT SETTINGS NOTED, TRACH NOTED TO BE BLEEDING WITH MD AWARE, IV IS PATENT AND INTACT, POSSIBLE BRONCHOSCOPY IF PT CONTINUES TO BLEED, SAFETY PRECAUTIONS IN PLACE, CALL LIGHT WITHIN REACH, WILL MONITOR PT ACCORDINGLY
--- NOTE | 2018-10-29 07:58 | NUR ---
TRANSFER OF CARE NOTE PT WAS ENDORSED TO MARKELL FERMIN FOR DELMIS AT THIS TIME
[2018-10-29 08:00] VITALS: BP_SYST 142; BP_SYST 150; BP_SYST 156; BP_DIAS 66; BP_DIAS 82; BP_DIAS 94
--- NOTE | 2018-10-29 08:00 | NUR ---
TRIAGE TECHNICIAN OPENING NOTES RECEIVED REPORT FROM JOSE FERMIN. PATIENT OBTUNDED, BUT RESPONDS TO DEEP PAIN STIMULI. BREATHING EVEN & UNLABORED W/ TRACH INTACT & TOLERATING VENT SETTINGS WELL. NO RESPIRATORY DISTRESS NOTED. MILD BLEEDING STILL NOTED IN TRACH SITE & SUCTION TUBING. ON TELE W/ CONTROLLED A-FIB W/ BBB, HR 88. RIGHT UPPER ARM PICC LINE INTACT & PATENT W/ DRESSING CDI & IVF D5 1/2 NS INFUSING WELL @ 75 ML/HR. G-TUBE PATENT & FLUSHING WELL, NO GTF @ THIS TIME. NO S/S OF PAIN OR DISCOMFORT @ THIS TIME. SAFETY MEASURES IN PLACE W/ SIDE RAILS UPX3 & BED ALARM ON. WILL CONTINUE TO MONITOR.
[2018-10-29] MEDS: DOCUSATE SODIUM LIQ 100 MG/10 ML UDC GT SCH ×2 (08:43→17:04)
[2018-10-29] MEDS: LEVETIRACETAM SOL (5 ML) 100 MG/ML UDC GT SCH ×2 (08:43→17:04)
[2018-10-29] MEDS: LORATADINE 10 MG TABLET GT SCH (08:44)
[2018-10-29] MEDS: FAMOTIDINE/PF INJ 20 MG/2 ML VIAL IV SCH ×2 (08:44→21:38)
[2018-10-29] MEDS: DILTIAZEM HCL 30 MG TABLET GT SCH ×2 (08:44→17:04)
[2018-10-29] MEDS: ASCORBIC ACID 500 MG TABLET GT SCH (08:44)
[2018-10-29] MEDS: MULTIVIT W/MINERALS 1 TAB TABLET GT SCH (08:44)
[2018-10-29] MEDS: CHOLECALCIFEROL 1,000 UNIT TABLET (VIT D3) GT SCH (08:44)
[2018-10-29 09:00] LABS: EOSINOPHILS % (MANUAL) 39 % (0-4); LYMPHOCYTES % (MANUAL) 13 % (16-48); MONOCYTES % (MANUAL) 13 % (0-11.0); NEUTROPHILS % (MANUAL) 35 (42-76)
[2018-10-29] MEDS ORDERED: HYDROGEL DRESSING 90 GM TUBE TP SCH (09:00)
[2018-10-29] MEDS ORDERED: LORAZEPAM INJ 2 MG/ML VIAL IVP PRN (09:30)
[2018-10-29] MEDS: PROSOURCE / PROSTAT (PYXIS) 30 ML UDC GT SCH (10:52)
[2018-10-29] MEDS: HYDROGEL DRESSING 90 GM TUBE TP SCH ×2 (10:53→21:39)
[2018-10-29 12:00] VITALS: BP_SYST 136; BP_SYST 137; BP_SYST 168; BP_DIAS 50; BP_DIAS 66; BP_DIAS 92
[2018-10-29] MEDS: SEVELAMER CARBONATE 0.8 GM POWD.PACK GT SCH ×2 (12:54→17:04)
[2018-10-29] MEDS ORDERED: SODIUM POLYSTYRENE SULF. PWD 15 GM UDC PO ONE (13:00)
--- NOTE | 2018-10-29 15:00 | NUR ---
DIRECTOR OF PHYSICAL THERAPY NOTE SEEN BY CINDY IVORY ,UPDATED ABOUT PATIENT CONDITION WITH LABS.GOT NEW ORDERS.GOT CONSENT FOR DIALYSIS AND DIALYSIS CATH INSERTION FROM ,SPOKE TO BY CHARGE NURSE MISSAEL AND CINDY IVORY.GOT CALL FROM ,WILL BE IN UNIT BY 1730 FOR DIALYSIS CATH INSERTION,.CINDY IVORY MADE AWARE.CINDY IVORY MADE AWARE ABOUT DIETARY RECOMMENDATION FOR TUBE FEEDING.LEFT MESSAGE.SEEN BY CINDY BUCKLEY.WOUND DEBRIDEMENT WILL BE TOMORROW .
[2018-10-29 16:00] VITALS: BP 138/66
--- NOTE | 2018-10-29 18:04 | NUR ---
FLAT LOCKER NOTE MADE AWARE ABOUT INCREASED TRACH BLEEDING .GOT NEW ORDER FOR BRONCHOSCOPY.LEFT MESSAGE FOR .WAITING TO CALL BACK FOR CONSENT.
--- NOTE | 2018-10-29 19:32 | NUR ---
STUCCO MASON NOTE S/P DIALYSIS CATH INSERTION BY CINDY COLE.PACKAGE PICK UP IN ROOM FOR DIALYSIS.S/P BILATERAL HEEL WOUND DEBRIDEMENT DONE BY IN AM.MINIMAL BLEEDING NOTED.ENDORSED TO PM NURSE FOR DELMIS.WAITING FOR TO CALL BACK FOR CONSENT.
--- NOTE | 2018-10-29 19:59 | NUR ---
HEMODIALYSIS CATHETER INSERTION Patient requires HD catheter. Left femoral vein assessed with ultrasound and determined to be sufficient for HD catheter insertion. Patient prepped in sterile fashion. Lidocaine 1% injected at determined location. left femoral vein was accessed with needle under ultrasound guidance. guidewire placed through needle. Needle removed. Insertion site widen with a 2 mm cut with a scalpel. Introducer inserted over guidewire and removed. Trialysis 30 cm catheter inserted over guidewire. Catheter inserted smoothly and without complication. Guidewire removed. All three ports flushed with normal saline. blood return present. Catheter secured with two sutures with prolene 3-0. Caps placed at port ends. Biopatch placed on insertion site and covered with Tegaderm dressing. Patient tolerated well with minimal blood loss. EBL 3 ml. Successful HD cath insertion with no s/s of complication.
[2018-10-29 20:00] VITALS: BP 136/74
--- NOTE | 2018-10-29 20:10 | NUR ---
STONE RUBBER OPENING NOTES RECEIVED REPORT FROM MARKELL FERMIN. PATIENT OBTUNDED, BUT RESPONDS TO TACTILE STIMULI. BREATHING EVEN & UNLABORED W/ TRACH INTACT & TOLERATING VENT SETTINGS AC 12, TV 600, FIO2 40%, PEEP 5. NO RESPIRATORY DISTRESS NOTED. SOME BLEEDING STILL NOTED IN TRACH SITE & SUCTION TUBING. ON TELE W/ CONTROLLED A-FIB W/ BBB, HR 87. RIGHT UPPER ARM PICC LINE INTACT & PATENT W/ DRESSING CDI & IVF D5 1/2 NS INFUSING WELL @ 75 ML/HR. G-TUBE PATENT & FLUSHING WELL, NO GTF @ THIS TIME. NO S/S OF PAIN OR DISCOMFORT @ THIS TIME. SAFETY MEASURES IN PLACE W/ SIDE RAILS UP & BED ALARM ON. TURNED & REPOSITIONED FOR COMFORT. WILL CONTINUE TO MONITOR.
--- NOTE | 2018-10-29 20:30 | NUR ---
ENVIRONMENTAL HEALTH AND SAFETY MANAGER NOTES HD IN PROGRESS. NEW RIGHT FEMORAL HD CATH OK TO USE, NO SIGNS OF COMPLICATIONS NOTED.
--- NOTE | 2018-10-29 20:43 | NUR ---
PT [facility] WITH NOTED SETTINGS . PT IS OBTUNDED. TRACH IS PATENT AND SECURED . BREATHING TX GIVEN PER MD'S ORDER , NO ADVERSE REACTION NOTED . NO RESP DISTRESS OR SOB NOTED AT THIS TIME. SX'D MODERATE AMOUNT OF BLOODY THICK SECRETIONS. ALARMS ARE SET AND AUDIBLE. VENT PLUGGED INTO RED OUTLET. AMBU BAG BEDSIDE. WILL CONTINUE TO MONITOR.
[2018-10-30] VITALS: BP 140/72
[2018-10-30] MEDS: IPRATROPIUM NEB FS 0.5 MG/2.5 ML AMPUL.NEB NEB SCH ×4 (01:22→19:59)
[2018-10-30] MEDS: ALBUTEROL FS 2.5 MG/0.5 ML VIAL.NEB NEB SCH ×4 (01:22→19:59)
[2018-10-30] MEDS: INSULIN REGULAR, HUMAN 100 UNIT/ML 3 ML VIAL SQ PRN ×2 (01:34→05:59)
[2018-10-30 04:00] VITALS: BP 133/81
[2018-10-30] MEDS: BLOOD SUGAR DIAGNOSTIC 1 EACH STRIP IN SCH ×4 (05:59→18:05)
--- NOTE | 2018-10-30 07:30 | NUR ---
RT PATIENT RECEIVED TRACH'D ON [facility] VENT WITH SETTINGS PER MD ORDER. HYDRAULIC BOOM OPERATOR DONE. VENT PLUGGED INTO RED OUTLET. AMBU BAG AT BEDSIDE. ALARMS ON AND FUNCTIONING PROPERLY. BREATHING TX'S GIVEN ORDERED. NO ADVERSE REACTIONS OBSERVED. SUCTIONED MOD AMOUNTS OF BLOODY SECRETIONS. RN AWARE. NO SIGNS OF DISTRESS NOTED AT THIS TIME. WILL CONTINUE TO MONITOR THE PATIENT FOR ANY CHANGE OF CONDITION. Addendum: 10/30/18 at 1820 by YENNI KINNEY RT Amended: Links added.
--- NOTE | 2018-10-30 07:38 | NUR ---
ORDER BUILDER LOADER OPENING NOTES RECEIVED PATIENT BED OBTUNDED, PT RESPONDS TO TACTILE STIMULI. NO SOB OR ACUTE DISTRESS NOTED. TRACH INTACT & TOLERATING VENT SETTINGS AC 12, TV 600, FIO2 40%, PEEP 5. SOME BLEEDING STILL NOTED IN TRACH SITE & SUCTION TUBING. ON TELE W/ CONTROLLED A-FIB W/ BBB, HR 89. YELITZA PICC LINE INTACT & PATENT W/ DRESSING CDI & IVF D5 1/2 NS INFUSING WELL @ 75 ML/HR. G-TUBE PATENT & FLUSHING WELL, NO GTF @ THIS TIME PENDING PROCEDURE PER MD. SAFETY MEASURES IN PLACE W/ SIDE RAILS UP & BED ALARM ON. TURNED & REPOSITIONED FOR COMFORT. WILL CONTINUE TO MONITOR.
[2018-10-30 08:00] VITALS: BP 149/75
[2018-10-30] MEDS: SEVELAMER CARBONATE 0.8 GM POWD.PACK GT SCH ×3 (08:00→18:02)
[2018-10-30] MEDS: FAMOTIDINE/PF INJ 20 MG/2 ML VIAL IV SCH ×2 (09:00→21:48)
[2018-10-30] MEDS: LORATADINE 10 MG TABLET GT SCH (09:00)
[2018-10-30] MEDS: CHOLECALCIFEROL 1,000 UNIT TABLET (VIT D3) GT SCH (09:00)
[2018-10-30] MEDS: LEVETIRACETAM SOL (5 ML) 100 MG/ML UDC GT SCH ×2 (09:00→18:05)
[2018-10-30] MEDS: DOCUSATE SODIUM LIQ 100 MG/10 ML UDC GT SCH ×2 (09:00→18:04)
[2018-10-30] MEDS: MULTIVIT W/MINERALS 1 TAB TABLET GT SCH (09:00)
[2018-10-30] MEDS: DILTIAZEM HCL 30 MG TABLET GT SCH ×2 (09:00→18:04)
[2018-10-30] MEDS: ASCORBIC ACID 500 MG TABLET GT SCH (09:00)
[2018-10-30] MEDS: PROSOURCE / PROSTAT (PYXIS) 30 ML UDC GT SCH (09:00)
[2018-10-30] MEDS: HYDROGEL DRESSING 90 GM TUBE TP SCH ×2 (09:50→21:51)
[2018-10-30] MEDS: Z GUARD REMEDY 2 OZ OINT TP SCH ×2 (09:50→21:50)
[2018-10-30] MEDS: IV D5/0.45 NACL 1,000 ML IV PRN (11:14)
[2018-10-30 12:00] VITALS: BP 150/75
[2018-10-30] MEDS ORDERED: LIDOCAINE 2% GEL 30 ML TUBE MM ONE (14:00)
--- NOTE | 2018-10-30 14:27 | NUR ---
MD ORDERED 5MG MORPHINE IV X1 (ONE TIME) FOR PATIENT PRE-PROCEDURE. VERBAL ORDER TAKEN AND INPUT BY RN. MD ORDERED 1MG ATIVAN IV X1 (ONE TIME) FOR PATIENT PRE-PROCEDURE. VERBAL ORDERS TAKEN AND INPUT BY RN.
[2018-10-30] MEDS ORDERED: LORAZEPAM INJ 2 MG/ML VIAL IV PRN (14:30)
[2018-10-30] MEDS ORDERED: MORPHINE SULFATE INJ 10 MG/ML DISP.SYRIN IV PRN (14:30)
[2018-10-30] MEDS ORDERED: MORPHINE SULFATE INJ 2 MG/ML DISP.SYRIN IV ONE (15:00)
[2018-10-30 15:06] LABS: LYMPHOCYTES # (AUTO) 1.4 /CMM (0.8-4.8); MEAN CORPUSCULAR HGB CONC 33 g/dl (31.0-36.0)
[2018-10-30 15:57] LABS: BASOPHILS % (AUTO) 0.2 % (0.0-2.0); LYMPHOCYTES % (AUTO) 18.7 % (20.0-44.0); MEAN CORPUSCULAR VOLUME 92 fL (80-96); MONOCYTES # (AUTO) 1.2 /CMM (0.1-1.30); MONOCYTES % (AUTO) 16.3 % (2.0-12.0); NEUTROPHILS % (AUTO) 39.5 % (43.0-81.0); PLATELET COUNT (AUTO) 177 /CMM (150-450); RED BLOOD CELL COUNT(AUTO) 2.13 MIL/uL (4.5-6.0); WHITE BLOOD COUNT (AUTO) 7.6 K/uL (4.3-11.0)
[2018-10-30 16:00] VITALS: BP 150/64
[2018-10-30 16:01] LABS: EOSINOPHILS % (AUTO) 25.3 % (0.0-6.0)
[2018-10-30 16:02] LABS: HEMATOCRIT 20 % (39-51); HEMOGLOBIN 6.6 g/dL (13.5-17.5)
--- NOTE | 2018-10-30 16:55 | NUR ---
HOGSHEAD WRECKER NOTE WOUND CARE COMPLETED ORDERED.
[2018-10-30] MEDS: NEPRO 1,000 ML BOTTLE GT PRN (17:47)
[2018-10-30 18:03] LABS: BAND % (MANUAL) 1 % (0.0-5.0); EOSINOPHILS % (MANUAL) 19 % (0-4); LYMPHOCYTES % (MANUAL) 18 % (16-48); MONOCYTES % (MANUAL) 9 % (0-11.0); NEUTROPHILS % (MANUAL) 53 (42-76)
[2018-10-30 20:00] VITALS: BP 143/82
--- NOTE | 2018-10-30 20:00 | NUR ---
JAYNE RN OPENING NOTES RECEIVED PATIENT IN BED OBTUNDED, PT RESPONDS TO TACTILE STIMULI. NO SOB OR ACUTE DISTRESS NOTED. TRACH INTACT & TOLERATING VENT SETTINGS AC 12, TV 600, FIO2 40%, PEEP 5. SOME BLEEDING STILL NOTED IN TRACH SITE & SUCTION TUBING. ON TELE W/ CONTROLLED A-FIB W/ BBB, HR 91. YELITZA PICC LINE INTACT & PATENT W/ DRESSING CDI & IVF D5 1/2 NS INFUSING WELL @ 75 ML/HR. G-TUBE PATENT & FLUSHING WELL INFUSING @ 30ML/HR WITH RESIDUAL OF 100ML. HD COMPLETED TODAY W/ 1OOOML FLUID REMOVAL. SAFETY MEASURES IN PLACE W/ SIDE RAILS UP & BED ALARM ON. TURNED & REPOSITIONED FOR COMFORT. WILL CONTINUE TO MONITOR.
--- NOTE | 2018-10-30 20:00 | NUR ---
PT [facility] WITH NOTED SETTINGS . PT IS OBTUNDED. TRACH IS PATENT AND SECURED . BREATHING TX GIVEN PER MD'S ORDER , NO ADVERSE REACTION NOTED . NO RESP DISTRESS OR SOB NOTED AT THIS TIME. SX'D MODERATE AMOUNT OF BLOODY THICK SECRETIONS. ALARMS ARE SET AND AUDIBLE. VENT PLUGGED INTO RED OUTLET. AMBU BAG BEDSIDE. WILL CONTINUE TO MONITOR.
--- NOTE | 2018-10-30 20:01 | NUR ---
SALESPERSON TERRAZZO TILES NOTE PATIENT HEMOGLOBIN 6.6 AT 1457. MD FALCON NOTIFIED. GIVEN REPORT THAT PATIENT COMPLETED DIALYSIS TODAY AND HAD BRONCHOSCOPY COMPLETED. NO NEW ORDERS PLACED BY .
--- NOTE | 2018-10-30 20:03 | NUR ---
AERIAL ADVERTISER CLOSING NOTES PATIENT IN BED OBTUNDED, PT RESPONDS TO TACTILE STIMULI. NO SOB OR ACUTE DISTRESS NOTED. TRACH INTACT & TOLERATING VENT SETTINGS AC 12, TV 600, FIO2 40%, PEEP 5. SOME BLEEDING STILL NOTED IN TRACH SITE & SUCTION TUBING. ON TELE W/ CONTROLLED A-FIB W/ BBB, HR 89. YELITZA PICC LINE INTACT & PATENT W/ DRESSING CDI & IVF D5 1/2 NS INFUSING WELL @ 75 ML/HR. G-TUBE PATENT & FLUSHING WELL INFUSING @ 30ML/HR. HD COMPLETED TODAY W/ 1OOOML FLUID REMOVAL. SAFETY MEASURES IN PLACE W/ SIDE RAILS UP & BED ALARM ON. TURNED & REPOSITIONED FOR COMFORT. CARE ENDORSED TO FITNESS PLAN COORDINATOR RN.
--- NOTE | 2018-10-30 22:49 | NUR ---
RN NOTES MD JIMENEZ IS AT THE BEDSIDE IV FLUIDS RATE WILL BE REDUCED TO D51/2NS 50ML/HR FROM 75ML/HR.
[2018-10-31] VITALS (8 sets, daily range): BP systolic 127–146; BP diastolic 67–83
[2018-10-31] MEDS: IV D5/0.45 NACL 1,000 ML IV PRN (01:15)
[2018-10-31] MEDS: BLOOD SUGAR DIAGNOSTIC 1 EACH STRIP IN SCH ×4 (01:16→17:29)
[2018-10-31] MEDS: ACETAMINOPHEN 650 MG/20.3 ML UDC GT PRN (01:39)
[2018-10-31] MEDS: IPRATROPIUM NEB FS 0.5 MG/2.5 ML AMPUL.NEB NEB SCH ×4 (01:56→19:38)
[2018-10-31] MEDS: ALBUTEROL FS 2.5 MG/0.5 ML VIAL.NEB NEB SCH ×4 (01:56→19:38)
[2018-10-31 06:36] LABS: BASOPHILS % (AUTO) 0.3 % (0.0-2.0); LYMPHOCYTES # (AUTO) 1.5 /CMM (0.8-4.8); LYMPHOCYTES % (AUTO) 20.1 % (20.0-44.0); MEAN CORPUSCULAR HGB CONC 33 g/dl (31.0-36.0); MEAN CORPUSCULAR VOLUME 93 fL (80-96); MONOCYTES % (AUTO) 13.5 % (2.0-12.0); NEUTROPHILS # (AUTO) 2.8 /CMM (1.8-8.9); NEUTROPHILS % (AUTO) 39.4 % (43.0-81.0); PLATELET COUNT (AUTO) 192 /CMM (150-450); RED BLOOD CELL COUNT(AUTO) 2.11 MIL/uL (4.5-6.0); WHITE BLOOD COUNT (AUTO) 7.2 K/uL (4.3-11.0)
[2018-10-31 06:42] LABS: EOSINOPHILS % (AUTO) 26.7 % (0.0-6.0)
[2018-10-31 06:45] LABS: HEMATOCRIT 20 % (39-51); HEMOGLOBIN 6.5 g/dL (13.5-17.5)
[2018-10-31 06:54] LABS: CARBON DIOXIDE 26 mmol/L (21-32); CHLORIDE 106 mmol/L (98-107); CREATININE 6.4 mg/dL (0.6-1.3); GLUCOSE 123 mg/dL (74-106); MAGNESIUM 2.4 mg/dL (1.8-2.4); PHOSPHORUS 7.2 mg/dL (2.5-4.9); POTASSIUM 3.8 mmol/L (3.5-5.1); SODIUM SERUM 143 mmol/L (136-145); UREA NITROGEN, BLOOD 64 mg/dL (7-18)
--- NOTE | 2018-10-31 07:30 | NUR ---
RN OPENING NOTES RECEIVED PATIENT IN BED, OBTUNDED NON VERBAL. NO PAIN, SOB NOTED. ON VENT, CAME IN WITH DX OF BLEEDING TRACHEOSTOMY. ON TELE MONITOR, AFIB WITH BBB. HAS MULTIPLE WOUNDS. HAS A YELITZA PICC, WITH D5 HALF NS RUNNING AT ML/HR. HAS LEFT FEMORAL HD CATH. LAB CALLED NOC SHIFT RN FOR CRITICAL HGB OF. MD MADE AWARE, WILL WAIT FOR ORDERS. BED LOCKED AND IN LOW POSITION. WILL CONTINUE TO MONITOR
--- NOTE | 2018-10-31 08:00 | NUR ---
RN NOTES PATIENT IS HAVING DIALYSIS AT THIS TIME. WILL HOLD SOME OF AM MEDS, BP MEDS. CINDY FALCON. ORDERED TO TRANSFUSE 1 UNIT OF BLOOD NOT STAT FOR HGB 6.5.
[2018-10-31 08:23] LABS: BAND % (MANUAL) 3 % (0.0-5.0); EOSINOPHILS % (MANUAL) 28 % (0-4); LYMPHOCYTES % (MANUAL) 18 % (16-48); MONOCYTES % (MANUAL) 11 % (0-11.0); NEUTROPHILS % (MANUAL) 40 (42-76)
--- NOTE | 2018-10-31 08:30 | NUR ---
RT RECEIVED PT ON VENT WITH NOTED SETTINGS. METAL ROASTER DONE AND TRACH IS SECURE. VENT ALARMS CHECKED AND AUDIBLE. VENT PLUGGED IN RED OUTLET. AMBU BAG NOTED BEDSIDE. SX WITH MOD THK RED BLOOD SECRETIONS, RN AWARE. PT ON CONTINUOUS PULSE OX. BREATHING TX GIVEN AND NO ADV REACTION. NO RESP DISTRESS OR SOB NOTED AT THIS TIME.
[2018-10-31] MEDS: LEVETIRACETAM SOL (5 ML) 100 MG/ML UDC GT SCH ×2 (08:44→17:16)
[2018-10-31] MEDS: DOCUSATE SODIUM LIQ 100 MG/10 ML UDC GT SCH ×2 (08:44→17:16)
[2018-10-31] MEDS: FAMOTIDINE/PF INJ 20 MG/2 ML VIAL IV SCH ×2 (08:44→21:57)
[2018-10-31] MEDS: LORATADINE 10 MG TABLET GT SCH (08:44)
[2018-10-31] MEDS: MULTIVIT W/MINERALS 1 TAB TABLET GT SCH (08:44)
[2018-10-31] MEDS: ASCORBIC ACID 500 MG TABLET GT SCH (08:44)
[2018-10-31] MEDS: Z GUARD REMEDY 2 OZ OINT TP SCH ×2 (08:50→21:58)
[2018-10-31] MEDS: HYDROGEL DRESSING 90 GM TUBE TP SCH ×2 (08:50→21:58)
[2018-10-31] MEDS: PROSOURCE / PROSTAT (PYXIS) 30 ML UDC GT SCH (08:52)
[2018-10-31] MEDS: CHOLECALCIFEROL 1,000 UNIT TABLET (VIT D3) GT SCH (09:00)
[2018-10-31] MEDS: DILTIAZEM HCL 30 MG TABLET GT SCH ×2 (11:40→17:16)
[2018-10-31] MEDS: SEVELAMER CARBONATE 0.8 GM POWD.PACK GT SCH ×3 (11:41→17:07)
--- NOTE | 2018-10-31 13:55 | NUR ---
RN NOTES PATIENT'S PICC LINE WAS LEAKING PER WAREHOUSE LABORER. CHECKED THE SITE AND HALF OF IT WAS ALREADY OUT. WAITING FOR FOLDING RULES PRINTING MACHINE OPERATOR TO OK THE NEW ORDER OF PICC. PENDING FOR BLOOD TRANSFUSION.
--- NOTE | 2018-10-31 14:00 | NUR ---
RN NOTES PATIENT WAS KEEP MOVING HIS RIGHT ARM AND WAS TRYING TO REMOVE VENT, RIGHT HAND MITTENS WAS PLACED. FAMILY AT BEDSIDE, AWARE OF THE SITUATION
--- NOTE | 2018-10-31 15:22 | NUR ---
RN NOTES PER PICC LINE NURSE, MARGE COLE TO USE LEFT FEMORAL AV SHUNT FOR BLOOD TRANSFUSION. Addendum: 10/31/18 at 1523 by THOMAS ROSAS RN PER INSTRUCTIONS, USE THE PORT THAT LOOKS DIFFERENT FROM THE TWO. THE ONE IN THE MIDDLE.
--- NOTE | 2018-10-31 15:57 | NUR ---
RN NOTES GIVING BLOOD TRANSFUSION AT THIS TIME. CO SIGNED BY JENY LAWRENCE.
--- NOTE | 2018-10-31 16:24 | NUR ---
RN NOTES BLOOD TRANSFUSION ON GOING, AFTER 15 MINS RECHECKED VS. PATIENT IS NOW RUNNING A FEVER WITH TEMP OF 100.1F AND TACHYCARDIC WITH HR OF 101. PATIENT IS OBTUNDED AND NON VERBAL TO VERBALIZE ANY PRURITUS OR ETC. CACHORRO WHITE MADE AWARE AND CN ORDERED BLOOD TRANSFUSION WORKUP, WILL BRING BLOOD BACK TO LAB. FAMILY AT BEDSIDE AWARE
--- NOTE | 2018-10-31 16:25 | NUR ---
HONEY PRODUCER NOTES BLOOD TRANSFUSION STARTED, AFTER 15 MINS, VITALS SIGNS TAKEN, FOUND, TEMPERATURE ELEVATED AT 100.1F, TACHYCARDIC WITH HEART RATE OF 101. BLOOD TRANSFUSION STOPPED. VITAL SIGNS TAKEN. PATIENT IS VENT DEPENDENT, OBTUNDED, NON VERBAL. NO SIGNS OF RASHES. NOTIFIED CACHORRO FALCON NP AND BLOOD BANK. NEW ORDER RECEIVED FOR TRANSFUSION REACTION WORK UP PER CACHORRO FALCON NP BLOOD SENT BACK TO LABORATORY. FAMILY AT BEDSIDE AWARE. WILL MONITOR PATIENT.
--- NOTE | 2018-10-31 17:00 | NUR ---
RN NOTES RECHECKED PATIENT'S TEMPERATURE 30 MINS AFTER BLOOD TRANSFUSION. WENT DOWN TO 99F. HR ALSO WENT DOWN TO 81.
[2018-10-31] MEDS: NEPRO 1,000 ML BOTTLE GT PRN (18:16)
--- NOTE | 2018-10-31 18:42 | NUR ---
RN CLOSING NOTE PATIENT IN BED, OBTUNDED OPENS EYES. ALL MEDS GIVEN. BLOOD TRANSFUSION TODAY, WILL ENDORSE TO NOC SHIFT WHAT HAPPENED. FAMILY WAS HERE THIS AM. WOUND DEBRIDEMENT DONE AT BEDSIDE. VS STABLE. NO PAIN OR SOB NOTED. BLEEDING IN TRACH STILL NOTED. MD AWARE. USING THE LEFT FEMORAL AV SHUNT FOR IVF. BED LOCKED AND IN LOWEST POSITION. CALL LIGHT WITHIN REACH. WILL ENDORSE TO NOC SHIFT FOR DELMIS
--- NOTE | 2018-10-31 19:38 | NUR ---
PT RC[facility] WITH NOTED SETTINGS . PT IS OBTUNDED. TRACH IS PATENT AND SECURED . BREATHING TX GIVEN PER MD'S ORDER , NO ADVERSE REACTION NOTED . NO RESP DISTRESS OR SOB NOTED AT THIS TIME. SX'D MODERATE AMOUNT OF BLOODY THICK SECRETIONS. ALARMS ARE SET AND AUDIBLE. VENT PLUGGED INTO RED OUTLET. AMBU BAG BEDSIDE. WILL CONTINUE TO MONITOR.
--- NOTE | 2018-10-31 20:00 | NUR ---
RN OPENING TELE NOTES RECEIVED PATIENT IN BED, OBTUNDED NON VERBAL. NO PAIN, SOB NOTED. ON VENT, NOTED WITH TRACHEAL BLEEDING. ON TELE MONITOR, AFIB WITH BBB. HAS MULTIPLE WOUNDS. HAS A YELITZA PICC, WITH D5 HALF NS RUNNING AT ML/HR. HAS LEFT FEMORAL HD CATH. LAB CALLED NOC SHIFT RN FOR CRITICAL HGB OF. MD MADE AWARE, WILL WAIT FOR ORDERS. BED LOCKED AND IN LOW POSITION. WILL CONTINUE TO MONITOR
[2018-11-01] VITALS (13 sets, daily range): BP systolic 106–179; BP diastolic 63–92
[2018-11-01] MEDS: IV D5/0.45 NACL 1,000 ML IV PRN (02:00)
[2018-11-01] MEDS: ALBUTEROL FS 2.5 MG/0.5 ML VIAL.NEB NEB SCH ×4 (02:06→20:08)
[2018-11-01] MEDS: IPRATROPIUM NEB FS 0.5 MG/2.5 ML AMPUL.NEB NEB SCH ×4 (02:06→20:08)
--- NOTE | 2018-11-01 06:06 | NUR ---
RN CLOSING TELE NOTES ENDORSED PATIENT IN BED, OBTUNDED NON VERBAL. NO PAIN, SOB NOTED. ON VENT, NOTED WITH TRACHEAL BLEEDING. ON TELE MONITOR, AFIB WITH BBB. HAS MULTIPLE WOUNDS. HAS A YELITZA PICC, WITH D5 1/2 NS RUNNING AT ML/HR. HAS LEFT FEMORAL HD CATH. LAB CALLED NOC SHIFT RN FOR CRITICAL HGB OF. MD MADE AWARE, WILL WAIT FOR ORDERS. BED LOCKED AND IN LOW POSITION. WILL CONTINUE TO MONITOR
[2018-11-01] MEDS: BLOOD SUGAR DIAGNOSTIC 1 EACH STRIP IN SCH ×4 (06:53→18:43)
--- NOTE | 2018-11-01 07:34 | NUR ---
RN OPENING TELE NOTES RECEIVED PATIENT IN BED, OBTUNDED NON VERBAL. NO PAIN, SOB OR ACUTE DISTRESS NOTED. ON VENT TOLERATING PRESCRIBED SETTINGS WELL. NOTED WITH TRACHEAL BLEEDING. ON TELE MONITOR, AFIB WITH BBB. HAS MULTIPLE WOUNDS. WOUNDS CLEAN AND DRY. PATIENT REPORTED TO HAVE PULLED OUT HIS YELITZA PICC. CURRENTLY NO ORDER/PLAN FOR NEW PICC LINE. ;D5 HALF NS RUNNING AT 50 ML/HR. THROUGH FEMORAL HD CATHETER. HD CATHETER PATENT AND INTACT. LAB CALLED NOC SHIFT RN FOR CRITICAL HGB OF. MADE AWARE, PLAN IS TO HAVE BLOOD TRANSFUSUION COMPLETED BY HD RN DURING TODAY'S HD TX. SAFETY MEASURES IN PLACE. BED LOCKED AND IN LOW POSITION. WILL CONTINUE TO MONITOR
[2018-11-01 08:08] LABS: BASOPHILS % (AUTO) 0.2 % (0.0-2.0); EOSINOPHILS % (AUTO) 24.4 % (0.0-6.0); LYMPHOCYTES # (AUTO) 1.2 /CMM (0.8-4.8); LYMPHOCYTES % (AUTO) 13.2 % (20.0-44.0); MEAN CORPUSCULAR HGB CONC 33 g/dl (31.0-36.0); MEAN CORPUSCULAR VOLUME 94 fL (80-96); MONOCYTES % (AUTO) 10.6 % (2.0-12.0); NEUTROPHILS # (AUTO) 4.7 /CMM (1.8-8.9); NEUTROPHILS % (AUTO) 51.6 % (43.0-81.0); PLATELET COUNT (AUTO) 177 /CMM (150-450); RED BLOOD CELL COUNT(AUTO) 2.11 MIL/uL (4.5-6.0); WHITE BLOOD COUNT (AUTO) 9.2 K/uL (4.3-11.0)
[2018-11-01] MEDS: SEVELAMER CARBONATE 0.8 GM POWD.PACK GT SCH ×3 (08:15→18:42)
[2018-11-01 08:16] LABS: HEMATOCRIT 20 % (39-51); HEMOGLOBIN 6.5 g/dL (13.5-17.5)
[2018-11-01 08:28] LABS: ALANINE AMINOTRANSFERASE 18 U/L (12-78); ALBUMIN 1.8 g/dL (3.4-5.0); ALKALINE PHOSPHATASE 105 U/L (46-116); ASPARTATE AMINOTRANSFERASE 25 U/L (15-37); BILIRUBIN,TOTAL 0.3 mg/dL (0.2-1.0); CALCIUM, SERUM 11.2 mg/dL (8.5-10.1); CARBON DIOXIDE 25 mmol/L (21-32); CHLORIDE 108 mmol/L (98-107); CREATININE 5.1 mg/dL (0.6-1.3); GLUCOSE 130 mg/dL (74-106); MAGNESIUM 2.4 mg/dL (1.8-2.4); PHOSPHORUS 5.8 mg/dL (2.5-4.9); POTASSIUM 4.1 mmol/L (3.5-5.1); SODIUM SERUM 143 mmol/L (136-145); TOTAL PROTEIN, SERUM 7.5 g/dL (6.4-8.2); UREA NITROGEN, BLOOD 33 mg/dL (7-18)
[2018-11-01] MEDS: CHOLECALCIFEROL 1,000 UNIT TABLET (VIT D3) GT SCH (08:37)
[2018-11-01] MEDS: DOCUSATE SODIUM LIQ 100 MG/10 ML UDC GT SCH ×2 (08:37→18:41)
[2018-11-01] MEDS: LEVETIRACETAM SOL (5 ML) 100 MG/ML UDC GT SCH ×2 (08:37→18:41)
[2018-11-01] MEDS: DILTIAZEM HCL 30 MG TABLET GT SCH ×2 (08:38→18:42)
[2018-11-01] MEDS: ASCORBIC ACID 500 MG TABLET GT SCH (08:38)
[2018-11-01] MEDS: FAMOTIDINE/PF INJ 20 MG/2 ML VIAL IV SCH ×2 (08:38→21:26)
[2018-11-01] MEDS: LORATADINE 10 MG TABLET GT SCH (08:38)
[2018-11-01] MEDS: MULTIVIT W/MINERALS 1 TAB TABLET GT SCH (08:38)
[2018-11-01] MEDS: PROSOURCE / PROSTAT (PYXIS) 30 ML UDC GT SCH (08:50)
[2018-11-01] MEDS: HYDROGEL DRESSING 90 GM TUBE TP SCH ×2 (08:59→21:27)
[2018-11-01] MEDS: Z GUARD REMEDY 2 OZ OINT TP SCH ×2 (09:00→21:27)
[2018-11-01 09:51] LABS: BAND % (MANUAL) 1 % (0.0-5.0); EOSINOPHILS % (MANUAL) 33 % (0-4); LYMPHOCYTES % (MANUAL) 8 % (16-48); MONOCYTES % (MANUAL) 6 % (0-11.0); MYELOCYTES % 1 % (0-0); NEUTROPHILS % (MANUAL) 51 (42-76)
--- NOTE | 2018-11-01 11:38 | NUR ---
COMMUNICATIONS MAINTAINER NOTE PATIENT HGB REMAINS LOW. 6.5 @ 0700. NOTIFIED. ORDERED 1 UNIT PRBC WITH HEMODIALYSIS TODAY. BLOOD ORDER PLACED.
[2018-11-01] MEDS ORDERED: diphenhydrAMINE HCL 50 MG/ML VIAL IV PRN (12:00)
[2018-11-01] MEDS: ACETAMINOPHEN 650 MG/20.3 ML UDC GT PRN (15:52)
--- NOTE | 2018-11-01 17:55 | NUR ---
ALARM FIELD TECHNICIAN NOTE BLOOD TRANSFUSION COMPLETED W/IO INCIDENT. TRANSFUSION DONE DURING HEMODIALYSIS.
--- NOTE | 2018-11-01 19:37 | NUR ---
RN OPENING TELE NOTES RECEIVED PATIENT IN BED, OBTUNDED NON VERBAL. NO PAIN, SOB NOTED. ON VENT, NOTED WITH TRACHEAL BLEEDING. ON TELE MONITOR, AFIB WITH BBB. HAS MULTIPLE WOUNDS. HAS A YELITZA PICC, WITH D5 1/2 NS@50 ML/HR. HAS LEFT FEMORAL HD CATH, S/P HD AND BLOOD TRANSFUSION, WELL KAMI'. WILL CONT' TO MONITOR FOR A/R ,BED LOCKED AND IN LOW POSITION.
--- NOTE | 2018-11-01 20:01 | NUR ---
SPINDLE PLUMBER CLOSING NOTES PATIENT IN BED, OBTUNDED NON VERBAL. NO PAIN, SOB OR ACUTE DISTRESS NOTED. ON VENT TOLERATING PRESCRIBED SETTINGS WELL. NOTED WITH TRACHEAL BLEEDING. ON TELE MONITOR, AFIB WITH BBB. HAS MULTIPLE WOUNDS. WOUNDS CLEAN AND DRY. PATIENT REPORTED TO HAVE PULLED OUT HIS YELITZA PICC. CURRENTLY NO ORDER/PLAN FOR NEW PICC LINE. ;D5 HALF NS RUNNING AT 50 ML/HR. THROUGH FEMORAL HD CATHETER. HD CATHETER PATENT AND INTACT. LAB CALLED FOR CRITICAL HGB. MADE AWARE, BLOOD TRANSFUSUION COMPLETED DURING HD ON TODAY'S HD. TRANSFUSION COMPLETED W/O INCIDENT. SAFETY MEASURES IN PLACE. BED LOCKED AND IN LOW POSITION. CARE ENDORSED TO QC ANALYST RN.
[2018-11-02] VITALS (19 sets, daily range): BP systolic 137–202; BP diastolic 48–124
[2018-11-02] MEDS: NEPRO 1,000 ML BOTTLE GT PRN (00:35)
[2018-11-02] MEDS: BLOOD SUGAR DIAGNOSTIC 1 EACH STRIP IN SCH ×4 (00:35→17:55)
[2018-11-02] MEDS: IV D5/0.45 NACL 1,000 ML IV PRN ×2 (00:36→20:53)
[2018-11-02] MEDS: ALBUTEROL FS 2.5 MG/0.5 ML VIAL.NEB NEB SCH ×4 (01:46→19:15)
[2018-11-02] MEDS: IPRATROPIUM NEB FS 0.5 MG/2.5 ML AMPUL.NEB NEB SCH ×4 (01:46→19:15)
[2018-11-02 06:23] LABS: BASOPHILS % (AUTO) 0.3 % (0.0-2.0); EOSINOPHILS % (AUTO) 23.3 % (0.0-6.0); HEMATOCRIT 25 % (39-51); HEMOGLOBIN 8.1 g/dL (13.5-17.5); LYMPHOCYTES # (AUTO) 1.4 /CMM (0.8-4.8); LYMPHOCYTES % (AUTO) 13.6 % (20.0-44.0); MEAN CORPUSCULAR HGB CONC 33 g/dl (31.0-36.0); MEAN CORPUSCULAR VOLUME 92 fL (80-96); MONOCYTES % (AUTO) 9.5 % (2.0-12.0); NEUTROPHILS # (AUTO) 5.5 /CMM (1.8-8.9); NEUTROPHILS % (AUTO) 53.3 % (43.0-81.0); PLATELET COUNT (AUTO) 156 /CMM (150-450); RED BLOOD CELL COUNT(AUTO) 2.72 MIL/uL (4.5-6.0); WHITE BLOOD COUNT (AUTO) 10.3 K/uL (4.3-11.0)
--- NOTE | 2018-11-02 06:40 | NUR ---
RN CLOSING TELE NOTES ENDORSED PATIENT IN BED, OBTUNDED NON VERBAL. NO PAIN, SOB NOTED. ON VENT, NOTED WITH TRACHEAL BLEEDING. ON TELE MONITOR, AFIB WITH BBB. HAS MULTIPLE WOUNDS. HAS A YELITZA PICC, WITH D5 1/2 NS@50 ML/HR. HAS LEFT FEMORAL HD CATH, S/P HD AND BLOOD TRANSFUSION, WELL AKMI'. WILL CONT' TO MONITOR FOR A/R ,BED LOCKED AND IN LOW POSITION.
[2018-11-02 06:44] LABS: CALCIUM, SERUM 11.4 mg/dL (8.5-10.1); CARBON DIOXIDE 28 mmol/L (21-32); CHLORIDE 104 mmol/L (98-107); CREATININE 4.8 mg/dL (0.6-1.3); GLUCOSE 125 mg/dL (74-106); MAGNESIUM 2.2 mg/dL (1.8-2.4); PHOSPHORUS 5.5 mg/dL (2.5-4.9); POTASSIUM 4.3 mmol/L (3.5-5.1); SODIUM SERUM 140 mmol/L (136-145); UREA NITROGEN, BLOOD 28 mg/dL (7-18)
[2018-11-02] MEDS: SEVELAMER CARBONATE 0.8 GM POWD.PACK GT SCH ×3 (08:41→17:49)
[2018-11-02] MEDS: LORATADINE 10 MG TABLET GT SCH (08:42)
[2018-11-02] MEDS: DOCUSATE SODIUM LIQ 100 MG/10 ML UDC GT SCH ×2 (08:42→17:50)
[2018-11-02] MEDS: DILTIAZEM HCL 30 MG TABLET GT SCH ×2 (08:42→17:50)
[2018-11-02] MEDS: ASCORBIC ACID 500 MG TABLET GT SCH (08:42)
[2018-11-02] MEDS: MULTIVIT W/MINERALS 1 TAB TABLET GT SCH (08:42)
[2018-11-02] MEDS: LEVETIRACETAM SOL (5 ML) 100 MG/ML UDC GT SCH ×2 (08:42→17:49)
[2018-11-02] MEDS: FAMOTIDINE/PF INJ 20 MG/2 ML VIAL IV SCH ×2 (08:43→20:50)
[2018-11-02] MEDS: PROSOURCE / PROSTAT (PYXIS) 30 ML UDC GT SCH (08:43)
[2018-11-02] MEDS: CHOLECALCIFEROL 1,000 UNIT TABLET (VIT D3) GT SCH (08:43)
[2018-11-02] MEDS: HYDROGEL DRESSING 90 GM TUBE TP SCH ×2 (08:43→21:20)
[2018-11-02] MEDS: Z GUARD REMEDY 2 OZ OINT TP SCH ×2 (08:43→21:20)
[2018-11-02 10:10] LABS: BAND % (MANUAL) 5 % (0.0-5.0); EOSINOPHILS % (MANUAL) 23 % (0-4); LYMPHOCYTES % (MANUAL) 11 % (16-48); MONOCYTES % (MANUAL) 4 % (0-11.0); MYELOCYTES % 2 % (0-0); NEUTROPHILS % (MANUAL) 55 (42-76)
--- NOTE | 2018-11-02 11:35 | NUR ---
RN NOTE pt had vomited x1 and then later when suctioned vomit x1, zofran iv administered, will monitor and notify md. hob>30%, no respiratory distress. pt had no residual in stomach checked via g tube aspiration.
[2018-11-02] MEDS: hydrALAZINE HCL IV 20 MG VIAL IV PRN ×2 (13:26→20:08)
[2018-11-02] MEDS: HYDROCODONE/APAP 5/325MG 1 EACH TABLET PO PRN ×2 (13:27→20:50)
[2018-11-02] MEDS ORDERED: NS 0.9% IV ONE (13:30)
[2018-11-02] MEDS ORDERED: RITUXIMAB IV ONE (13:30)
[2018-11-02] MEDS ORDERED: methylPREDNISolone SOD SUCC 500 MG in IV NS 0.9% 100 ML IV SCH (14:00)
--- NOTE | 2018-11-02 14:15 | NUR ---
rn note pt seen by Corinne Smith, CINDY, aware about high blood pressure SBP 205/88, and and tachycardia, hydralazine ivp ordered and administered, bp decreased to 149/48, but remained tachycardic to HR 150s, diaphoretic, per BANQUET COOK Catlan to transfer to ICU.
--- NOTE | 2018-11-02 14:20 | NUR ---
PATIENT TRASFERRED FROM [facility] SECONDARY TO TACHYCARDIA AND RESPIRATORY DISTRESS PER JENY LAWRENCE WITH ORDERS GIVEN BY CACHORRO AGUERO. PATIENT CONNECTED TO MONITOR, UNCONTROLLED AFIB RATE 120'S. SBP 150. AXILLARY TEMP TAKEN WHICH SHOWS 104.3. SLIGHTLY TACHYPNEIC ON VENT BUT NO DISTRESS. SPO2 98-99% ON FIO2 30%. PATIENT NOTED SOAKED WITH URINE/STOOL ON ARRIVAL. COOL BED BATH GIVEN, FC WOLOF 16 INSERTED WITH CLEAR YELLOW URINE RETURN, CORE TEMP TAKEN THAT SHOWS 104. ALL DRESSING CHANGES MADE ON MULTIPLE OPEN WOUNDS. OTAINED BLOOD CULTURE ORDERS FROM DR. MARTINEZ.
[2018-11-02] MEDS: ACETAMINOPHEN 650 MG/20.3 ML UDC GT PRN (14:54)
--- NOTE | 2018-11-02 15:10 | NUR ---
SPOKE TO LACI POWELL REGARDING PATIENT CONDITION. URINALYSIS/URINE CULTURE ORDERED-COLLECTED AND SENT.
--- NOTE | 2018-11-02 16:40 | NUR ---
JOINT SEALER NOTE CLARIFIED WITH CACH[facility] REGARDING DIET ORDER WITH ORDER TO CHANGE TO NPO EXCEPT MEDS. NOTED AND CARRIED OUT
[2018-11-02 17:22] LABS: APPEARANCE,URINE CLOUDY (CLEAR); BILIRUBIN,URINE NEGATIVE (NEGATIVE); BLOOD, URINE 2+ Ery/uL (NEGATIVE); COLOR,URINE YELLOW (YELLOW); KETONES,URINE NEGATIVE (NEGATIVE); LEUKOCYTE ESTERASE ,URINE TRACE (NEGATIVE); NITRITE, URINE NEGATIVE (NEGATIVE); PH,URINE 6.5 (5.0-8.0); PROTEIN,URINE 3+ mg/dl (NEGATIVE); UGLUCOSE NEGATIVE (NEGATIVE); UROBILINOGEN,URINE 0.2 EU/dL (0.2)
--- NOTE | 2018-11-02 17:30 | NUR ---
MILL AND COAL TRANSPORT OPERATOR NOTE RECEIVED PHONE CALL FROM PHARMACY REGARDING RITUXAN MEDICATION, THEY WILL NOT RELEASE THE MEDICATION UNTIL DR. BLACK APPROVES THE MEDICATION DUE TO COST, OR IF FAMILY WILL BE OK TO GIVE MEDICATION DESPITE SEVERE SIDE EFFECTS AND COST. PENDING ADMIN.
[2018-11-02 17:49] LABS: BACTERIA,URINE 4+ /HPF (None Seen); SQUAMOUS EPITHELIAL CELL,UR 0-2 /HPF (None Seen)
[2018-11-02 17:50] LABS: URINE AMORPHOUS URATE Few /HPF (None Seen)
[2018-11-02 17:51] LABS: FINE GRANULAR CASTS,URINE Few /LPF (None Seen)
[2018-11-02 18:11] LABS: CREATININE, URINE 47.1 MG/DL (30.0-125.0)
[2018-11-02 18:28] LABS: URINE TOTAL PROTEIN 599.3 mg/dL (0-11.9)
--- NOTE | 2018-11-02 19:40 | NUR ---
PLAN CHECKER CLOSING NOTE NO RESPIRATORY DISTRESS NOTED. TOLERATING VENT SETTINGS. GT PATENT AND INTACT, CLAMPED. AFIB CONTROLLED. RECTAL TEMP 99.5. SKIN WARM AND DRY TO TOUCH. ISOLATION PRECAUTIONS OBSERVED. HOB ELEVATED. BILATERAL SOFT RESTRAINTS IN PLACE. F/C PATENT AND INTACT, IN PLACE. HOB ELEVATED. SIDE RAILS UP AND LOCKED. BED KEPT AT LOWEST POSITION. CONTINUITY OF CARE ENDORSED TO PM NURSE.
[2018-11-02 20:25] LABS: EOSINOPHIL,URINE None Seen
[2018-11-03] VITALS (52 sets, daily range): BP systolic 127–237; BP diastolic 65–164
[2018-11-03] MEDS: BLOOD SUGAR DIAGNOSTIC 1 EACH STRIP IN SCH ×3 (00:29→12:19)
[2018-11-03] MEDS: IPRATROPIUM NEB FS 0.5 MG/2.5 ML AMPUL.NEB NEB SCH ×4 (01:09→19:58)
[2018-11-03] MEDS: ALBUTEROL FS 2.5 MG/0.5 ML VIAL.NEB NEB SCH ×4 (01:10→19:57)
[2018-11-03] MEDS: hydrALAZINE HCL IV 20 MG VIAL IV PRN (04:21)
[2018-11-03 04:41] LABS: BASOPHILS % (AUTO) 0.1 % (0.0-2.0); EOSINOPHILS % (AUTO) 0.2 % (0.0-6.0); HEMATOCRIT 26 % (39-51); HEMOGLOBIN 8.4 g/dL (13.5-17.5); LYMPHOCYTES # (AUTO) 0.9 /CMM (0.8-4.8); LYMPHOCYTES % (AUTO) 3.9 % (20.0-44.0); MEAN CORPUSCULAR HGB CONC 32 g/dl (31.0-36.0); MEAN CORPUSCULAR VOLUME 93 fL (80-96); MONOCYTES # (AUTO) 0.4 /CMM (0.1-1.30); MONOCYTES % (AUTO) 1.7 % (2.0-12.0); NEUTROPHILS # (AUTO) 21.3 /CMM (1.8-8.9); NEUTROPHILS % (AUTO) 94.1 % (43.0-81.0); PLATELET COUNT (AUTO) 162 /CMM (150-450); RED BLOOD CELL COUNT(AUTO) 2.84 MIL/uL (4.5-6.0); WHITE BLOOD COUNT (AUTO) 22.6 K/uL (4.3-11.0)
[2018-11-03 05:12] LABS: CALCIUM, SERUM 12.1 mg/dL (8.5-10.1); CARBON DIOXIDE 23 mmol/L (21-32); CHLORIDE 100 mmol/L (98-107); CREATININE 6.4 mg/dL (0.6-1.3); GLUCOSE 254 mg/dL (74-106); MAGNESIUM 2.5 mg/dL (1.8-2.4); PHOSPHORUS 7.4 mg/dL (2.5-4.9); POTASSIUM 5.7 mmol/L (3.5-5.1); SODIUM SERUM 136 mmol/L (136-145); UREA NITROGEN, BLOOD 45 mg/dL (7-18)
[2018-11-03] MEDS: ACETAMINOPHEN 650 MG/20.3 ML UDC GT PRN (05:29)
--- NOTE | 2018-11-03 07:30 | NUR ---
GLASS ROLLING MACHINE OPERATOR INITIAL NOTE RECEIVED PATIENT VENT DEPENDENT, AWAKE, NON-VERBAL. NO RESPIRATORY DISTRESS NOTED. WITH VENT SETTINGS AC 12, 600, FIO2 30, PEEP 5. TRACH IN PLACE. AFIB UNCONTROLLED ON MONITOR. GT PATENT AND INTACT, IN PLACE. SKIN WARM AND DRY TO TOUCH. F/C PATENT AND INTACT. NOTED WITH ELEVATED TEMPERATURE, COOLING MEASURES CONTINUED. ISOLATION PRECAUTIONS OBSERVED. HOB ELEVATED. TURNED AND REPOSITIONED. WILL CONTINUE TO MONITOR.
[2018-11-03] MEDS: CHOLECALCIFEROL 1,000 UNIT TABLET (VIT D3) GT SCH (08:46)
[2018-11-03] MEDS: LEVETIRACETAM SOL (5 ML) 100 MG/ML UDC GT SCH (08:46)
[2018-11-03] MEDS: DOCUSATE SODIUM LIQ 100 MG/10 ML UDC GT SCH (08:46)
[2018-11-03] MEDS: SEVELAMER CARBONATE 0.8 GM POWD.PACK GT SCH (08:47)
[2018-11-03] MEDS: FAMOTIDINE/PF INJ 20 MG/2 ML VIAL IV SCH (08:47)
[2018-11-03] MEDS: DILTIAZEM HCL 30 MG TABLET GT SCH (08:47)
[2018-11-03] MEDS: ASCORBIC ACID 500 MG TABLET GT SCH (08:47)
[2018-11-03] MEDS: PROSOURCE / PROSTAT (PYXIS) 30 ML UDC GT SCH (08:48)
[2018-11-03] MEDS: LORATADINE 10 MG TABLET GT SCH (08:48)
[2018-11-03] MEDS: MULTIVIT W/MINERALS 1 TAB TABLET GT SCH (08:48)
[2018-11-03] MEDS: Z GUARD REMEDY 2 OZ OINT TP SCH (08:53)
[2018-11-03] MEDS: HYDROGEL DRESSING 90 GM TUBE TP SCH (08:53)
--- NOTE | 2018-11-03 09:14 | NUR ---
RESOURCE ROOM SPECIAL EDUCATION TEACHER NOTE SEEN AND EXAMINED BY DR. GERARDO
--- NOTE | 2018-11-03 09:16 | NUR ---
CRIMPING PRESS OPERATOR NOTE OR NURSES AT BEDSIDE. Addendum: 11/03/18 at 0916 by TOREY CARMEN RN PLEASE DELETE. WRONG CHART.
--- NOTE | 2018-11-03 10:57 | NUR ---
RUBBER WORKER NOTE CALLED [facility] FOR CONSENT FOR BIOPSY. LEFT MESSAGE TO CALL BACK.
--- NOTE | 2018-11-03 11:17 | NUR ---
BREAST TRIMMER NOTE RELAYED LACTIC ACID RESULT TO CACHORRO. WAITING FOR ORDER
[2018-11-03] MEDS ORDERED: FEE PK DOSING 1 MIN EA MC ONE (11:40)
[2018-11-03] MEDS ORDERED: VANCOMYCIN 1 GM in IV D5W 250ml IV ONE (12:00)
[2018-11-03] MEDS: INSULIN REGULAR, HUMAN 100 UNIT/ML 3 ML VIAL SQ PRN (12:21)
[2018-11-03] MEDS ORDERED: CEFEPIME 1 GM in IV D5W 50 ML IV SCH (13:00)
[2018-11-03 13:30] LABS: BILIRUBIN,DIRECT 0.1 mg/dL (0.0-0.2); BILIRUBIN,TOTAL 0.4 mg/dL (0.2-1.0)
--- NOTE | 2018-11-03 14:05 | NUR ---
MAGISTRATE NOTE 1405: AND FRIEND WHO WAS ICU NURSE IN THE PAST STATED THEY WANT TO CHANGE THE CODE STATUS OF THE PATIENT TO DNR AND THEY WOULD LIKE TO SPEAK TO THE DOCTOR. . INFORMED CHARGE NURSE AND INFORMED AGRICULTURE INTERNSHIP CACHORRO. CACHORRO SPOKE WITH REGARDING PATIENTS CURRENT CONDITION, AND DECIDED TO PLACE PATIENT ON COMFORT MEASURES, MORPHINE DRIP, BUT KEEP VENTILATOR. 1428: CACHORRO WILL DISCUSS WITH DR. GERARDO AND DR. MUSTAFA REGARDING FAMILY WISHES. WAITING FOR ORDERS.
--- NOTE | 2018-11-03 14:30 | NUR ---
ASSISTANT FRONT END MANAGER NOTE HD NURSE AT BEDSIDE WITH ONGOING DIALYSIS TREATMENT. NOTED PATIENT IN DISTRESS, HR ELEVATED, BP ELEVATED, SPO2 DECREASED. DIALYSIS NURSE INFORMED DR. JAMES WITH ORDER TO STOP DIALYSIS. NO FLUID TAKEN OUT. Addendum: 11/03/18 at 1451 by TOREY CARMEN RN WRONG TIME: RIGHT TIME 1400
[2018-11-03] MEDS: MORPHINE SULFATE PF DRIP 250 MG in IV D5W 240 ML IV PRN (16:13)
--- NOTE | 2018-11-03 18:14 | NUR ---
RT END OF THE SHIFT REPORT, PT 72 Y OLD MALE REC. 0700 AM REMAINS MECHANICALLY VENTILATED TRACHED POERTEX # 7 MANAGER REIMBURSEMENT DONE, CUFF INFLATED. VENTILATOR SETTINGS NOTED. ALARMS SET AND FUNCTIONAL, VENT PLUGGED IN TO RED OUTLET. AMBU BAG AT BED SIDE. B/S BILATERALLY RHONCHI, SUX'D FOR MINIMAL OF BROWNISH SECRETIONS, HME CHANGES,TX'S GIVEN INLINE NO ADVERSE REACTION NOTED. NO CHANGES, NO DISTRESS NOTED T/O DAY SHIFT. REPORT WILL PASS TO PM SHIFT Addendum: 11/03/18 at 1818 by JEFRY ASHER RT Amended: Links added.
--- NOTE | 2018-11-03 18:30 | NUR ---
JUNIOR ART DIRECTOR NOTE FAMILY MEMBERS AT BEDSIDE TO SEE PATIENT
--- NOTE | 2018-11-03 19:00 | NUR ---
TRIBAL DELEGATE NOTE CLARIFIED WITH CACHORRO REGARDING IVF ORDER. OK TO D/C MEDICATION.
--- NOTE | 2018-11-03 19:27 | NUR ---
FLORAL ASSOCIATE CLOSING NOTE PATIENT COMFORTABLE, TOLERATING VENT SETTINGS. NO RESPIRATORY DISTRESS NOTED. F/C INTACT. GT PATENT AND INTACT. LEFT FEMORAL HD CATH IN PLACE WITH MORPHINE DRIP AT 2MG/HR. ALL DUE MEDS GIVEN. KEPT CLEAN AND DRY. TURNED AND REPOSITIONED Q2 AND PRN. SIDE RAILS UP AND LOCKED. BED KEPT AT LOWEST POSITION. CONTINUITY OF CARE ENDORSED TO PM NURSE.
--- NOTE | 2018-11-03 20:00 | NUR ---
MEDICAL PRACTICE ADMINISTRATOR INITIAL NOTE RECEIVED PATIENT VENT DEPENDENT, AWAKE, NON-VERBAL. NO RESPIRATORY DISTRESS NOTED. WITH VENT SETTINGS AC 12, 600, FIO2 30, PEEP 5. TRACH IN PLACE. VENTILATOR PLUGGED TO RED OUTLET, ALL SAFETY ALARMS ARE CHECKED. A-FIB CONTROLLED WITH BBB ON SCOUT. GT CLAMPED, PATENT AND INTACT, IN PLACE. SKIN WARM AND DRY TO TOUCH. F/C PATENT AND INTACT. LEFT FEMORAL HD CATHETER IS IN PLACE WITH MORPHINE DRIP AT 2MG/HR. NO SIGNS AND SYMPTOMS OF PAIN OR ANY DISCOMFORT NOTED AT THIS TIME. ISOLATION PRECAUTIONS OBSERVED. HOB ELEVATED. TURNED AND REPOSITIONED.ALL SAFETY MEASURES ARE IN PLACE, BED IN LOW, LOCKED POSITION, CALL LIGHT IN PLACE. WILL CONTINUE TO MONITOR.
[2018-11-04] VITALS (32 sets, daily range): BP systolic 122–165; BP diastolic 56–102
[2018-11-04] MEDS: IPRATROPIUM NEB FS 0.5 MG/2.5 ML AMPUL.NEB NEB SCH ×4 (01:06→20:10)
[2018-11-04] MEDS: ALBUTEROL FS 2.5 MG/0.5 ML VIAL.NEB NEB SCH ×4 (01:06→20:10)
[2018-11-04 05:05] LABS: BASOPHILS # (AUTO) 0.4 /CMM (0.0-0.2); BASOPHILS % (AUTO) 1.1 % (0.0-2.0); HEMATOCRIT 22 % (39-51); HEMOGLOBIN 7.1 g/dL (13.5-17.5); LYMPHOCYTES % (AUTO) 2.8 % (20.0-44.0); MEAN CORPUSCULAR HGB CONC 32 g/dl (31.0-36.0); MEAN CORPUSCULAR VOLUME 92 fL (80-96); MONOCYTES % (AUTO) 2.7 % (2.0-12.0); NEUTROPHILS # (AUTO) 33.4 /CMM (1.8-8.9); NEUTROPHILS % (AUTO) 93.4 % (43.0-81.0); PLATELET COUNT (AUTO) 121 /CMM (150-450); RED BLOOD CELL COUNT(AUTO) 2.43 MIL/uL (4.5-6.0)
[2018-11-04 05:24] LABS: CALCIUM, SERUM 10.9 mg/dL (8.5-10.1); CARBON DIOXIDE 25 mmol/L (21-32); CHLORIDE 100 mmol/L (98-107); CREATININE 6.7 mg/dL (0.6-1.3); GLUCOSE 173 mg/dL (74-106); MAGNESIUM 2.6 mg/dL (1.8-2.4); POTASSIUM 5.3 mmol/L (3.5-5.1); SODIUM SERUM 137 mmol/L (136-145); UREA NITROGEN, BLOOD 67 mg/dL (7-18)
[2018-11-04 05:42] LABS: PHOSPHORUS 8.1 mg/dL (2.5-4.9)
--- NOTE | 2018-11-04 05:53 | NUR ---
got a call from lab bereket Mitchell for pt critical value of phosphorous 8.1 patient is on comfort measures. protocol initiated and followed. charge nurse Margie notified. will continue to monitor patient closely. Addendum: 11/04/18 at 0559 by ROSMERY HUDSON RN Got a call again from lab. Another critical lab: WBC 35.8
[2018-11-04 05:56] LABS: WHITE BLOOD COUNT (AUTO) 35.8 K/uL (4.3-11.0)
--- NOTE | 2018-11-04 06:06 | NUR ---
PT TRACHED PTX 7 ON VENT. NO CHANGES THE WHOLE NIGHT. MOD AMT OF THICK SECRETION SX'D. O2 SAT 99%. ALARMS SET AND AUDIBLE. AMBU BAG AT BEDSIDE. TRACH SECURE, CUFF FINANCIAL AID OFFICER. VENT PLUGGED INTO RED OUTLET. Addendum: 11/04/18 at 0610 by EMORY MURPHY RT Amended: Links added.
[2018-11-04 06:19] LABS: LYMPHOCYTES % (MANUAL) 3 % (16-48); MONOCYTES % (MANUAL) 2 % (0-11.0); NEUTROPHILS % (MANUAL) 95 (42-76)
[2018-11-04 07:11] LABS: COMPLEMENT C3, SERUM 103 mg/dL (82-167); COMPLEMENT C4, SERUM 20 mg/dL (14-44)
--- NOTE | 2018-11-04 07:19 | NUR ---
rn notes MD MOBLEY IS AT THE UNIT AND HAS BEEN NOTIFIED ABOUT PT CRITICAL LAB VALUES OF PHOS 8.1 AND WBC 35.8. NO NEW ORDERS AT THIS TIME. PATIENT IS RESTING COMFORTABLY IN BED WITH IV MORPHINE DRIP AT 2MG/HR, V/S ARE WNL. PATIENT TURNED AND REPOSITIONED REPORT GIVEN TO AM RN FOR OTM CONSULTANT.
--- NOTE | 2018-11-04 07:53 | NUR ---
RN NOTE: PATIENT RECEIVED OBTUNDED, NONVERBAL. ON VENT-TRAC, SETTINGS TOLERATING WELL. NO S/S OF DISTRESS NOTED. ASPIRATION PRECAUTIONS OBSERVED. G-TUBE CLAMPED DUE TO EPISODES OF VOMITING PER RN REPORT. CONTINUE WITH MORPHINE DRIP 2MG/HR FOR COMFORT. SAFETY MEASURES OBSERVED. CONTINUE TO MONITOR. CONTINUE WITH COMFORT MEASURES.
--- NOTE | 2018-11-04 08:15 | NUR ---
RT PATIENT REC'D TRACHED ON [facility] VENT WITH ORDERED SETTINGS KAMI WELL. VENT ALARMS CHECKED + AUDIBLE. CUFF PRESSURE CHECKED LINE PALLETIZER. PATIENT AIRWAY SUCTIONED WITH SMALL AMT OF PALE SEMI-THICK SECRETIONS. AMBU BAG AT [facility]. Addendum: 11/04/18 at 1047 by BARNEY JAMES RT Amended: Links added.
[2018-11-04 09:05] LABS: ABG BASE EXCESS -1.1 mmol/L; ABG OXYGEN SATURATION 96.7 % (92.0-98.5); ABG PCO2 40.8 mmHg (35.0-45.0); ABG PH 7.385 (7.350-7.450); ABG PO2 94.5 mmHg (75.0-100.0); AaDO2 71.5 mmHg; COHb 0.9 % (0.5-1.5); MetHb 0.3 % (0.0-1.5); O2Hb 95.5 % (94.0-97.0); SITE, ABG Left Radial
[2018-11-04 12:09] LABS: *ANCA ATYPICAL p-ANCA <1:20 titer (Neg:<1:20); *ANCA CYTOPLASMIC (C-ANCA) <1:20 titer (Neg:<1:20); *ANCA PERINUCLEAR (P-ANCA) <1:20 titer (Neg:<1:20); *ANCANTIMYELOPEROXIDASE (MPO) <9.0 U/mL (0.0-9.0)
--- NOTE | 2018-11-04 18:31 | NUR ---
RN NOTE: PATIENT REMAINS OBTUNDED, OPEN EYES TO PAINFUL STIMULI. ON VENT -TRAC, SETTINGS TOLERATING WELL. NO EPISODE OF TRACHEAL BLEEDING NOTED. VITAL SIGNS REMAINS STABLE AFEBRILE. TOBIN CATH WITH VERY MINIMAL OUTPUT. WOUND CARE DONE ORDERED. SAFETY MEASURES OBSERVED. NO SIGNIFICANT CHANGES NOTED DURING SHIFT. CONTINUE WITH COMFORT CARE. CONTINUE TO TURN & REPOSITION Q2H. PLAN TO TRANSFER TO ROOM 104.
--- NOTE | 2018-11-04 19:30 | NUR ---
RN NOTE, PATIENT IN BED WITH EYES CLOSED REMAINS OBTUNDED, ON MECHANICAL VENTILATOR WITH TRACH, TOLERATED SETTINGS WELL, NO EPISODE OF TRACHEAL BLEEDING NOTED AT THIS TIME, AFEBRILE, TOBIN CATH WITH MINIMAL OUTPUT NOTED, SAFETY MEASURES OBSERVED, AND FAMILY MEMBER AT BEDSIDE, CONTINUE WITH COMFORT CARE, MORPHINE DRIP INFUSING WELL, PATENT SEEMS COMFORTABLE NO FACIAL GRIMACING NOTED OR S/S OF PAIN OR DISCOMFORT NOTED AT THIS TIME, PLAN TO TRANSFER TO ROOM 104, AWARE, WILL CONTINUE TO MONITOR CLOSELY.
--- NOTE | 2018-11-04 19:50 | NUR ---
RN NOTES, PATIENT REPORT GIVEN TO LOY RN IN [place], PATIENT IS GOING TO ROOM 104.
--- NOTE | 2018-11-04 20:00 | NUR ---
RN NOTES, PATIENT TRANSFER TO [facility] ROOM 104, AT THIS TIME WITH ALL PROTOCOL PRECAUTIONS, ACCOMPANIED BY ARIANE CHARGE NURSE, RT AND ANOTHER RN WITH STABLE VS AND STABLE CONDITION.
--- NOTE | 2018-11-04 20:12 | NUR ---
PT TRANSFERRED TO 104.
--- NOTE | 2018-11-04 20:20 | NUR ---
MS/RN NOTE: PATIENT RECEIVED FROM ICU AT THIS TIME. NO S/S OF ACUTE DISTRESS NOTED. RESPIRATION EVEN AND UNLABORED. NO SOB NOTED. TRACH INTACT, PATENT CONNECTED TO VENT WITH PRESCRIBED SETTINGS. NO TRACHEAL BLEEDING NOTED. F/C IN PLACE, DRAINING WELL WITH YELLOW COLOR URINE, LEFT FEMORAL HD CATH, INTACT, PATENT. MORPHINE DRIPS RUNNING AT 2MG/HR. PATIENT OBTUNDED OPEN EYES TO PAINFUL STIMULI., NO S/S OF PAIN NOTED AT THIS TIME. KEPT PATIENT CLEAN AND DRY. SAFETY MAINTAINED. BED AT THE LOWEST SETTINGS, LOCKED. CALL LIGHT WITHIN REACH. WILL CONTINUE TO PROVIDED COMFORT CARE, MONITOR PATIENT PER PLAN OF CARE.
[2018-11-05] MEDS: IPRATROPIUM NEB FS 0.5 MG/2.5 ML AMPUL.NEB NEB SCH ×4 (01:27→19:45)
[2018-11-05] MEDS: ALBUTEROL FS 2.5 MG/0.5 ML VIAL.NEB NEB SCH ×4 (01:27→19:46)
[2018-11-05 04:00] VITALS: BP_SYST 128; BP_SYST 133; BP_DIAS 45; BP_DIAS 60
--- NOTE | 2018-11-05 05:19 | NUR ---
PATIENT RECEIVED ON TRACH TO VENT WITH SETTINGS OF AC 12, 600 VT, 30%, +5. SUCTIONED FOR MODERATE, THIN, YELLOW SECRETIONS. GIVEN IN-LINE TREATMENTS WITH NO ADVERSE REACTIONS. AMBU BAG AT BEDSIDE. VENT AND PULSE OXIMETER ALARMS AUDIBLE AND VISIBLE. VENT PLUGGED INTO RED OUTLET. Addendum: 11/05/18 at 0521 by ELIZABETH MATTHEWS RT Amended: Links added.
--- NOTE | 2018-11-05 06:22 | NUR ---
MS/RN EXIT NOTES: PATIENT IN NO ACUTE DISTRESS. RESPIRATION EVEN AND UNLABORED. NO SOB NOTED. TRACH INTACT, PATENT CONNECTED TO VENT WITH PRESCRIBED SETTINGS. NO TRACHEAL BLEEDING NOTED. F/C IN PLACE, DRAINING WITH YELLOW COLOR URINE. OUTPUT NOTES 100CC IN THIS SHIFT. PATIENT NPO STATUS, ONLY ON COMFORT MEASURES, ON MORPHINE DRIPS ORDERED. LEFT FEMORAL HD CATH, INTACT, PATENT. NO S/S OF PAIN NOTED AT THIS TIME. KEPT PATIENT CLEAN AND DRY. SAFETY MAINTAINED. BED AT THE LOWEST SETTINGS, LOCKED. ISOLATION PRECAUTIONS MAINTAINED AND STRICTLY OBSERVED. CALL LIGHT WITHIN REACH. WILL ENDORSE TO AM SHIFT FOR DELMIS.
[2018-11-05 08:00] VITALS: BP 146/65
[2018-11-05 12:11] LABS: *ANCANTIPROTEINASE 3 (PR-3) AB <3.5 U/mL (0.0-3.5)
[2018-11-05 16:00] VITALS: BP 85/45
--- NOTE | 2018-11-05 19:20 | NUR ---
RN OPENING NOTE PM. REPORT RECIEVED FROM MERVIN FERMIN. PATIENT COMFORT MEASURES. CURRENTLY ON VENT IN NO APPARENT DISTRESS OR DISCOMFORT. GRIMACES AND WITHDRAWS TO TOUCH. FAMILY AT THE BEDSIDE . POC UPDATED. REVIEWED CONTACT INFORMATION WITH PATIENTS SON AND FACE SHEET TO BE UPDATED WITH CURRENT NUMBERS. MORPHINE DRIP CHECKED IN POLE CLIMBER WITH SETTINGS AT 2MG PER HOUR PER ORDERED. 139 ML REMAIN OF INFUSION. NO INFILTRATION NOTED AT IV SITE. WILL CONT TO MONITOR. ON CONTACT ISOLATION FOR ESBL.
--- NOTE | 2018-11-05 19:35 | NUR ---
Handoff to night nurse Garrick Alberto RN
[2018-11-05 20:00] VITALS: BP 104/59
[2018-11-06] MEDS: IPRATROPIUM NEB FS 0.5 MG/2.5 ML AMPUL.NEB NEB SCH ×3 (00:36→14:05)
[2018-11-06] MEDS: ALBUTEROL FS 2.5 MG/0.5 ML VIAL.NEB NEB SCH ×3 (00:36→14:05)
[2018-11-06] MEDS: ACETAMINOPHEN 650 MG/20.3 ML UDC GT PRN (03:36)
--- NOTE | 2018-11-06 03:42 | NUR ---
pt hr > 160bpm, rn aware. will continue to monitor closely Addendum: 11/06/18 at 0343 by HANNAH KENDRICK RT Amended: Links added.
--- NOTE | 2018-11-06 03:50 | NUR ---
patient looks uncomfortable. patient looks uncomfortable on comfort measures and heartrate is in 180 to 190's patient is awake but not oriented. kalpana hernandez contacted. she ordered to titrate morphine drip up to 3mg/hour and give morphine 2 mg ivp injection. morphine titrated up to 3mg/hr. will administer additional morphine when available. Addendum: 11/06/18 at 0457 by SUSSY LAMBERT RN 0409 morphine administered per orders.
[2018-11-06] MEDS ORDERED: MORPHINE SULFATE INJ 2 MG/ML DISP.SYRIN IM ONE (04:00)
--- NOTE | 2018-11-06 07:15 | NUR ---
PATIENT APPEARS COMFORTABLE. MOUTH SUCTIONED. MORPHINE DRIP 3mL/HR. WILL CONTINUE TO MONITOR
[2018-11-06 08:00] VITALS: BP 100/32
[2018-11-06] MEDS: MORPHINE SULFATE PF DRIP 250 MG in IV D5W 240 ML IV PRN (12:38)
--- NOTE | 2018-11-06 17:45 | NUR ---
MS NURSE ,currently patient is an morphine drip at 3mg /hr ,non verbal and non responsive with out any pulses satellite project site monitor showed pulseless and no electrical activity noted pnounced at this time and nursing hospital supervisor notified and family at bed side endorsed it to next nurse for future care
--- NOTE | 2018-11-06 20:37 | NUR ---
MS/RN NOTES POST MORTEM CARE PROVIDED. WAITING FOR THE SECURITY TO TRANSFER THE BODY TO BASEMENT.
--- NOTE | 2018-11-06 21:00 | NUR ---
MS/RN NOTES MY SELF AND CONVERTIBLE SOFA BEDSPRING TESTER DELIVER THE BODY TO THE BASEMENT AT THIS TIME.
== END 2018-11-06 17:47 | disposition expired | DRG 853 ==
LOC: ER 17:55 → TELE-TD 19:42 → TELE1 19:53 → ICU 11-02 14:25 → TELE-TD 11-04 20:00 → MEDSG1 11-04 20:28
PROVIDERS: ADMIT Student in an Organized Health Care Education/Training Program; ATTEND Student in an Organized Health Care Education/Training Program
PROC: 5A1955Z Respiratory Ventilation, Greater than 96 Consecutive Hours (ICD-10-PCS; principal; 2018-10-27)
PROC: 02HV33Z Insertion of Infusion Device into Superior Vena Cava, Percutaneous Approach (ICD-10-PCS; 2018-10-28)
PROC: B548ZZA Ultrasonography of Superior Vena Cava, Guidance (ICD-10-PCS; 2018-10-28)
PROC: 0JBR0ZZ Excision of Left Foot Subcutaneous Tissue and Fascia, Open Approach (ICD-10-PCS; 2018-10-29)
PROC: 0BJ08ZZ Inspection of Tracheobronchial Tree, Via Natural or Artificial Opening Endoscopic (ICD-10-PCS; 2018-10-30)
PROC: 0JBM0ZZ Excision of Left Upper Leg Subcutaneous Tissue and Fascia, Open Approach (ICD-10-PCS; 2018-10-30)
PROC: 0JBL0ZZ Excision of Right Upper Leg Subcutaneous Tissue and Fascia, Open Approach (ICD-10-PCS; 2018-10-30)
PROC: 0JBN0ZZ Excision of Right Lower Leg Subcutaneous Tissue and Fascia, Open Approach (ICD-10-PCS; 2018-10-30)
PROC: 5A1D70Z Performance of Urinary Filtration, Intermittent, Less than 6 Hours Per Day (ICD-10-PCS; 2018-10-30)
PROC: 30233N1 Transfusion of Nonautologous Red Blood Cells into Peripheral Vein, Percutaneous Approach (ICD-10-PCS; 2018-10-31)
PROC: 5A1D70Z Performance of Urinary Filtration, Intermittent, Less than 6 Hours Per Day (ICD-10-PCS; 2018-11-01)
DX: A41.9 Sepsis, unspecified organism (principal); J96.20 Acute and chronic respiratory failure, unspecified whether with hypoxia or hypercapnia; L89.223 Pressure ulcer of left hip, stage 3; L89.213 Pressure ulcer of right hip, stage 3; L89.893 Pressure ulcer of other site, stage 3; E43 Unspecified severe protein-calorie malnutrition; G92 Toxic encephalopathy; N17.0 Acute kidney failure with tubular necrosis; N18.6 End stage renal disease; R53.2 Functional quadriplegia; M31.31 Wegener's granulomatosis with renal involvement; J47.1 Bronchiectasis with (acute) exacerbation; I12.0 Hypertensive chronic kidney disease with stage 5 chronic kidney disease or end stage renal disease; N39.0 Urinary tract infection, site not specified; Z99.11 Dependence on respirator [ventilator] status; D68.59 Other primary thrombophilia; M31.0 Hypersensitivity angiitis; J90 Pleural effusion, not elsewhere classified; J98.11 Atelectasis; Z51.5 Encounter for palliative care; Z66 Do not resuscitate; E11.22 Type 2 diabetes mellitus with diabetic chronic kidney disease; G40.909 Epilepsy, unspecified, not intractable, without status epilepticus; R13.10 Dysphagia, unspecified; Z99.2 Dependence on renal dialysis; Z79.4 Long term (current) use of insulin; E87.5 Hyperkalemia; I48.91 Unspecified atrial fibrillation; E83.52 Hypercalcemia; D63.8 Anemia in other chronic diseases classified elsewhere; Z74.01 Bed confinement status; Z88.0 Allergy status to penicillin; Z91.013 Allergy to seafood; Z79.899 Other long term (current) drug therapy; Z79.51 Long term (current) use of inhaled steroids; S90.821A Blister (nonthermal), right foot, initial encounter; X58.XXXA Exposure to other specified factors, initial encounter; Y92.9 Unspecified place or not applicable; M62.472 Contracture of muscle, left ankle and foot; M62.471 Contracture of muscle, right ankle and foot; T46.4X5A Adverse effect of angiotensin-converting-enzyme inhibitors, initial encounter; Z86.73 Personal history of transient ischemic attack (TIA), and cerebral infarction without residual deficits
CPT/HCPCS: 31623; 31720; 36415; 36600; 71045-TC; 71250-TC; 74018; 76770-TC; 80048-TC; 80053-TC; 80202-TC; 81000-TC; 82247-TC; 82248-TC; 82550-TC; 82570-TC; 82803-TC; 82962-TC; 83520; 83605-TC; 83735-TC; 84100-TC; 84155-TC; 84300-TC; 84484-TC; 85025-TC; 85610-TC; 85652-TC; 85730-TC; 86256; 86704; 86705; 86706; 86803; 86850-TC; 86921-TC; 87040-TC; 87081-TC; 87086-TC; 87186-TC; 87340; 90935-TC; 94002-TC; 94003-TC; 94760-TC; 94762-TC; 99082-TC; A4216; A4217; A6248; A6253; A6402; A6403; C1750; G0378; J0360; J0692; J1200; J1815; J1953; J2060; J2270; J2274; J2405; J2597; J2930; J3370; J3490; J7030; J7040; J7050; J7060; J7070; P9016-BL